=== PATIENT | male | born 1950 | race African-American/Black ===

== ENCOUNTER 2017-12-17 19:45 | Observation (INO) | payer MEDICARE, OTHER ==
--- NOTE | 2017-12-17 20:22 | PDOC ---
History of Present Illness - General Chief Complaint: Blood Sugar Problem Stated Complaint: HYPOGLYCEMIA Time Seen by Provider: 12/17/17 20:22 History Source: Patient, Spouse () Exam Limitations: Language Barrier (Mosotho Creole - retail advertising executive used) - History of Present Illness Initial Comments: Pt, with PMH of HTN, uncontrolled DM, and Alzheimer's ds, comes via EMS with complaints of hypoglycemia. Pt is accompanied by his , who also speaks Mosotho Creole. Pt was recently admitted at [facility] for HYPERglycemia, and a recent admit in the [place] for hypoglycemia. Today the pt had an episode of dizziness and diaphoresis, after he came inside for a walk. His denies any falls or LOC, but called EMS immediately because he "looked sick". EMS stated blood glucose was 43 on scene, improved to 144 after D10 administration. Pt states he has been compliant with his medications. He denies any recent illness , including LOC, vision changes, chest pain, cough, SOB, nausea/vomiting, abdominal pain, urinary symptoms, diarrhea/constipation, joint pain, or leg swelling. He denies any recent travel or sick contacts. PCP: Elijah Endocrine: Earle 12/17/17 22:11 Past History - Travel Traveled outside of the country in the last 30 days: No Close contact w/someone who was outside of country & ill: No - Past Medical History Allergies/Adverse Reactions: Allergies Allergy/AdvReac Type Severity Reaction Status Date / Time No Known Allergies Allergy Verified 11/12/17 21:16 Home Medications: Ambulatory Orders Duloxetine HCl 30 mg PO DAILY 11/12/17 Ezetimibe 10 mg PO DAILY 11/12/17 Insulin Aspart (Niacinamide) [Fiasp 100 Unit/ml Flextouch] 5 unit SQ AC Insulin Degludec [Tresiba Flextouch U-200] 20 unit SQ DAILY 11/12/17 Losartan/Hydrochlorothiazide [Losartan-Hctz 100-25 mg Tab] 1 each PO DAILY 11/12 Memantine HCl [Memantine HCl ER] 28 mg PO DAILY 11/12/17 cloNIDine HCL [Catapres -] 0.1 mg PO BID 11/12/17 Amlodipine Besylate 10 mg PO DAILY #30 tab 11/13/17 Aspirin [Ecotrin] 81 mg PO DAILY #30 tab 11/13/17 Atorvastatin Ca [Lipitor] 20 mg PO HS #30 tab 11/13/17 Blood Sugar Diagnostic [Test Strips] 100 each AC #100 strip 11/13/17 Gabapentin 600 mg PO TID 11/13/17 Carvedilol 25 mg PO BID 12/17/17 Omeprazole/Sodium Bicarbonate [Omeprazole-Bicarb 40-1,100 Cap] 1 each PO DAILY 12/17/17 COPD: No Dementia: Yes (Alzheimer's dementia) Diabetes: Yes Dialysis: No HTN: Yes - Suicide/Smoking/Psychosocial Hx Smoking History: Never smoked Have you smoked in the past 12 months: Yes Number of Cigarettes Smoked Daily: 10 Information on smoking cessation initiated: No 'Breaking Loose' booklet given: 11/13/17 Hx Alcohol Use: No Drug/Substance Use Hx: No Substance Use Type: None Hx Substance Use Treatment: No Review of Systems - Review of Systems Able to Perform ROS?: Yes (Creole retail advertising executive used) Is the patient limited [place] Islander proficient: No Constitutional: Yes: Weight Stable. No: Chills, Diaphoresis, Fever, Loss of Appetite, Weakness HEENTM: No: Blurred Vision, Double Vision, Nose Congestion, Hearing Loss, Difficulty Swallowing Respiratory: No: Cough, Orthopnea, Shortness of Breath Cardiac (ROS): No: Chest Pain, Edema, Irregular Heart Rate, Lightheadedness, Palpitations, Syncope, Chest Tightness ABD/GI: No: Abdominal Distended, Constipated, Diarrhea, Nausea, Poor Appetite, Poor Fluid Intake, Vomiting : No: Burning, Dysuria, Frequency, Hematuria, Pain, Urgency Musculoskeletal: No: Back Pain, Joint Pain, Joint Swelling Integumentary: No: Rash, Sweating Neurological: Yes: Headache (during hypoglycemic incident today), Dizziness ( vertiginous after low blood sugar). No: Numbness, Paresthesia, Seizure, Weakness, Unsteady Gait, Ataxia Psychiatric: No: Sleep Pattern Change, Change in Appetite Endocrine: Yes: Excessive Sweating (after hypoglycemic incident today). No: Intolerance to Cold, Intolerance to Heat, Increased Thirst, Increased Urine, Unexplained Weight Gain, Change in Weight Hematologic/Lymphatic: No: Anemia, Blood Clots, Easy Bleeding All Other Systems: Reviewed and Negative *Physical Exam - Vital Signs Last Vital Signs Temp Pulse Resp BP Pulse Ox 98 F 62 20 153/77 99 12/17/17 20:16 12/17/17 20:16 12/17/17 20:16 12/17/17 20:16 12/17/17 20:16 - Physical Exam General Appearance: Yes: Nourished, Appropriately Dressed. No: Apparent Distress (resting comfortably, vitals stable. Pt alert and responsive.) HEENT: positive: EOMI, Normal ENT Inspection, Normal Voice, Pharynx Normal, Hearing Grossly Normal. negative: Pale Conjunctivae, Scleral Icterus (R), Scleral Icterus (L), Pharyngeal Erythema, Tonsillar Exudate, Tonsillar Erythema , Rhinorrhea Neck: positive: Trachea midline, Normal Thyroid, Supple. negative: Tender, Rigid, Lymphadenopathy (R), Lymphadenopathy (L) Respiratory/Chest: positive: Lungs Clear, Normal Breath Sounds. negative: Chest Tender, Respiratory Distress, Accessory Muscle Use Cardiovascular: positive: Regular Rhythm, Regular Rate (HR 60s in department), S1, S2. negative: Edema, JVD, Murmur Vascular Pulses: Dorsalis-Pedis (R): 4+, Doralis-Pedis (L): 4+ Gastrointestinal/Abdominal: positive: Normal Bowel Sounds, Flat, Soft. negative : Tender, Organomegaly, Pulsatile Mass, Guarding, Rebound Rectal Exam: positive: deferred Lymphatic: negative: Adenopathy, Tenderness Musculoskeletal: positive: Normal Inspection. negative: CVA Tenderness Extremity: positive: Normal Capillary Refill, Normal Inspection, Normal Range of Motion, Pelvis Stable. negative: Tender, Pedal Edema Integumentary: positive: Normal Color, Dry, Warm. negative: Jaundice, Clammy, Diaphoresis, Petechiae, Ecchymosis, Bruising Neurologic: positive: cabinetmaker supervisor II-XII NML intact, Alert, Normal Mood/Affect, Normal Response, Motor Strength 5/5, Finger to Nose (WNL). negative: Fully Oriented ( Pt oriented to person and place, not time ( states this is pt baseline)), EOM Palsy, Facial Droop, Numbness, Confused, Depressed Affect Heart Score/ECG Review - History History: Slightly suspicious (HTN, PMH of LVH) - Electrocardiogram EKG: Non specific repolarization disturbance - Age Age: >/= 65 - Risk Factors Risk Factors Heart Score: Yes Hx Hypertension, Yes Hx Diabetes Based on the list above the patient has:: 1-2 risk factors - Troponin Troponin: </= normal limit - Score Heart Score - Total: 4 - ECG Intrepretation Rhythm: Regular Rhythm - [place]: Left [place]ot Deviation - ECG Impressions Normal ECG: No Non-specific ST Elevation: No Ischemic Changes: No Torsades willie Pointes: No WPW: No Comment:: HR 60, QRS 122. Normal sinus rhythm. LAD with LVH. ECG similar to prior (11/12/2017) 12/18/17 00:18 ED Treatment Course - LABORATORY CBC & Chemistry Diagram: 12/17/17 21:23 12/17/17 21:23 Medical Decision Making - Medical Decision Making Pt seen at bedside, also seen by Dr. Squires. Pt comes via EMS with complaints of hypoglycemia. Pt was recently admitted at [facility] for HYPERglycemia. Pt has HTN, DM , and Alzheimer's disease. Pt oriented to person and place, not time. states that is normal for him. Pt had episode of dizziness and diaphoresis, no falls, no LOC. Had CT scan prior admission. EMS stated BG was 43 on scene, improved to 144 after D10 administration. Will do basic lab work-up to ensure there were no other precipitating factors to the fall. Vitals stable, HR 60s, BP 153/77. Repeat BG 67 in ER, pt given juice and a sandwich. ECG showed large left axis deviation/LVH, wide QRS CBC, CMP, trop, UA and culture, Mg/Phos 12/17/17 21:26 CBC: WBC 14 CMP: K 3.3, BUN 24, Cr 1.7, Clearance 40 P 2.2 AST 46, AlkP 141. Acetone negative. Troponin negative. 12/17/17 22:13 UA negative for infection. Unclear source of increased WBC. Pt told we would like to keep him for admission for observation of his heart and to get his blood sugars under control. Pt agreeable to plan. 12/17/17 22:52 Spoke to ELENA Aj on behalf of admitting team. Pt will be admitted for observation to discuss diabetes medications. Ordered portable chest x-ray (WBC 14, r/o pneumonia) Ordered repeat BGM (prior was 67 in the department, pt had something to eat and is much more alert). 12/17/17 23:31 Repeat BGM 323. Pt stable and comfortable. Awaiting admitting team to see pt. 12/18/17 00:19 *DC/Admit/Observation/Transfer Diagnosis at time of Disposition: Hypoglycemia - Discharge Dispostion Condition at time of disposition: Stable Decision to Admit order: Yes - Referrals Referrals: Tab Tobar [Primary Care Provider] - - Patient Instructions - Post Discharge Activity
[2017-12-17] MEDS ORDERED: GABAPENTIN 300 MG CAPSULE (FP) PO ONE (21:22)
[2017-12-17 21:37] LABS: EOS % 0.3 % (0-4.5); HEMOGLOBIN 14.1 GM/dL (11.7-16.9); LYMPH % 14.7 % (8-40); MCH 28.6 pg (25.7-33.7); MCHC 33.5 g/dl (32.0-35.9); MEAN CELL VOLUME 85.2 fl (80-96); MEAN PLT VOLUME 10.1 fl (7.5-11.1); MONO % 4.5 % (3.8-10.2); NEUT % 79.5 % (42.8-82.8); PLATELET COUNT 212 K/MM3 (134-434); RBC 4.93 M/mm3 (4.00-5.60); RDW 13.9 % (11.9-15.9)
--- NOTE | 2017-12-17 21:40 | PDOC ---
Attending Attestation - Resident Resident Name: FabJennifer - ED Attending Attestation I have performed the following: I have examined & evaluated the patient, The case was reviewed & discussed with the resident, I agree w/resident's findings & plan, Exceptions are as noted - Medical Decision Making 12/17/17 21:21 A portion of this note was written by my scribe, under my supervision. Vital Signs Temp Pulse Resp BP Pulse Ox 98 F 62 20 153/77 99 12/17/17 20:16 12/17/17 20:16 12/17/17 20:16 12/17/17 20:16 12/17/17 20:16 67 year old male with history of HTN, DM, dementia presents with hypoglycemia. The patient was recently discharged several weeks ago ago for hyperglycemia. The patient has been taking his insulin as prescribed. This morning, the patient's quality assurance project manager had taken his sugars glucose low 200s. This evening, his quality assurance project manager noted that he was more confused than prior and diaphoretic. EMS was activated and noted his glucose in the low 40s. Was given D10W with improvement in mental status. The patient currently has no symptoms now. Unclear what is driving patient's hypoglycemia. Differential includes infectious etiology such as UTI, or acute renal insufficiency. The last discharge summary noted no known sulfonyurea. Will treat hypoglycemia and admit patient to observation. <Paramjit Squires - Last Filed: 12/17/17 21:21> - HPI HPI: 12/17/17 22:13 Patient is a 67 year old male with a significant past medical history of IDDM, HTN, other history likely extensive but unknown, BIBA w/ AMS 2/2 hypoglycemic who was brought in by EMS with complaints of AMS that occurred just prior to ED arrival. As per patient's , patients blood glucose level was check this morning and was found to be 229, prompting her to give him a dose of insulin followed by calling EMS. She reports patient began to act slightly altered which then prompted her to check his BGL again and found it to be 43. As per EMS patient was EMS at arrival but returned to baseline after being given a dose of glucose. Denies chest pain, sob. Denies nausea, vomiting. Denies contact with sick individuals, out of state travelling. Denies any other symptoms. Allergies: None Social history: Lives with . No smoking. No alcohol. No illicit drugs. Surgical history: As per HPI. PMD: Dr. Tab Tobar - Physicial Exam PE: 12/17/17 22:13 GENERAL: Awake, alert, and fully oriented, in no acute distress HEAD: No signs of trauma EYES: PERRLA, EOMI, sclera anicteric, conjunctiva clear ENT: Auricles normal inspection, hearing grossly normal, nares patent, oropharynx clear without exudates. Moist mucosa ABDOMEN: Soft, nontender, normoactive bowel sounds. No guarding, no rebound. No masses EXTREMITIES: Normal range of motion, no edema. No clubbing or cyanosis. No cords, erythema, or tenderness NEUROLOGICAL: Cranial nerves II through XII grossly intact. Normal speech, normal gait SKIN: Warm, Dry, normal turgor, no rashes or lesions noted. <Go Louis - Last Filed: 12/17/17 22:13>
[2017-12-17 21:54] LABS: INR 1.09 (0.83-1.09); PROTHROMBIN TIME (PATIENT) 12.3 SEC (9.7-13.0)
[2017-12-17 21:57] LABS: ACTIVATED PTT 34.4 SECONDS (25.2-36.5)
[2017-12-17 22:03] LABS: ACETONE SERUM NEGATIVE (NEGATIVE)
[2017-12-17 22:09] LABS: ALBUMIN 4.2 g/dl (3.4-5.0); ANION GAP 9 (8-16); BILIRUBIN,TOTAL 0.7 mg/dL (0.2-1.0); BLOOD UREA NITROGEN 24 mg/dL (7-18); CALCIUM 9.1 mg/dL (8.5-10.1); CHLORIDE 106 mmol/L (98-107); CO2 29 mmol/L (21-32); CREATININE 1.7 mg/dL (0.7-1.3); GLUCOSE,RANDOM 52 mg/dL (74-106); MAGNESIUM 2.3 mg/dL (1.8-2.4); PHOSPHOROUS 2.2 mg/dL (2.5-4.9); POTASSIUM 3.3 mmol/L (3.5-5.1); SGOT/AST 46 U/L (15-37); SGPT/ALT 65 U/L (12-78); SODIUM 144 mmol/L (136-145); TOT PROT 7.6 g/dl (6.4-8.2)
[2017-12-17 22:10] LABS: ALK PHOS 141 U/L (45-117)
[2017-12-17 22:34] LABS: URINE APPEARANCE CLEAR; URINE BILIRUBIN NEGATIVE (<2.0 mg/dL); URINE COLOR YELLOW; URINE GLUCOSE (UA) 1+ (NEGATIVE); URINE KETONE NEGATIVE (NEGATIVE); URINE LEUK ESTERASE NEGATIVE (NEGATIVE); URINE NITRITE NEGATIVE (NEGATIVE); URINE PROTEIN NEGATIVE (NEGATIVE)
[2017-12-17] MEDS ORDERED: DEXTROSE 5%-NORMAL SALINE 1,000 ML IV SCH (23:30)
--- NOTE | 2017-12-17 23:37 | HP ---
CHIEF COMPLAINT: Lethargy PCP: Dr. Tobar HISTORY OF PRESENT ILLNESS: This is a 67 y/o man with a PMHx of: DM, HTN, Alzheimer's. Who was BIBA to the ED found on the floor at home unresponsive EMS reports glucose 43. Patient was given D50 in the field. Patient's was at bedside reports that her takes his medications as prescribed but has fluctuating glucose readings from 200s down to 60's. Per spouse patient was admitted last August at [facility] for Hypoglycemia. ER course was notable for: (1) Glucose 52 (2) POC 67 (3) K 3.3 (4) WBC 14.0 Recent Travel: None PAST MEDICAL HISTORY: See HPI PAST SURGICAL HISTORY: Hernia Repair Social History: Smoking: Current 1PP 3 days Alcohol: Beer, Occasional Drugs: None Lives with Family History: Unknown Allergies No Known Allergies Allergy (Verified 11/12/17 21:16) HOME MEDICATIONS: Home Medications Medication Instructions Recorded Duloxetine HCl 30 mg PO DAILY 11/12/17 Ezetimibe 10 mg PO DAILY 11/12/17 Insulin Aspart (Niacinamide) 5 unit SQ AC 11/12/17 [Fiasp 100 Unit/ml Flextouch] Insulin Degludec [Tresiba 20 unit SQ DAILY 11/12/17 Flextouch U-200] Losartan/Hydrochlorothiazide 1 each PO DAILY 11/12/17 [Losartan-Hctz 100-25 mg Tab] Memantine HCl [Memantine HCl ER] 28 mg PO DAILY 11/12/17 cloNIDine HCL [Catapres -] 0.1 mg PO BID 11/12/17 Amlodipine Besylate 10 mg PO DAILY #30 tab 11/13/17 Aspirin [Ecotrin] 81 mg PO DAILY #30 tab 11/13/17 Atorvastatin Ca [Lipitor] 20 mg PO HS #30 tab 11/13/17 Blood Sugar Diagnostic [Test 100 each AC #100 strip 11/13/17 Strips] Gabapentin 600 mg PO TID 11/13/17 Carvedilol 25 mg PO BID 12/17/17 Omeprazole/Sodium Bicarbonate 1 each PO DAILY 12/17/17 [Omeprazole-Bicarb 40-1,100 Cap] REVIEW OF SYSTEMS CONSTITUTIONAL: lethargy Absent: fever, chills, diaphoresis, generalized weakness, malaise, loss of appetite, weight change HEENT: Absent: rhinorrhea, nasal congestion, throat pain, throat swelling, difficulty swallowing, mouth swelling, ear pain, eye pain, visual changes CARDIOVASCULAR: Absent: chest pain, syncope, palpitations, irregular heart rate, lightheadedness , peripheral edema RESPIRATORY: Absent: cough, shortness of breath, dyspnea with exertion, orthopnea, wheezing, stridor, hemoptysis GASTROINTESTINAL: Absent: abdominal pain, abdominal distension, nausea, vomiting, diarrhea, constipation, melena, hematochezia GENITOURINARY: Absent: dysuria, frequency, urgency, hesitancy, hematuria, flank pain, genital pain MUSCULOSKELETAL: Absent: myalgia, arthralgia, joint swelling, back pain, neck pain SKIN: Absent: rash, itching, pallor HEMATOLOGIC/IMMUNOLOGIC: Absent: easy bleeding, easy bruising, lymphadenopathy, frequent infections ENDOCRINE: Absent: unexplained weight gain, unexplained weight loss, heat intolerance, cold intolerance NEUROLOGIC: Absent: headache, focal weakness or paresthesias, dizziness, unsteady gait, seizure, mental status changes, bladder or bowel incontinence PSYCHIATRIC: Absent: anxiety, depression, suicidal or homicidal ideation, hallucinations. PHYSICAL EXAMINATION Vital Signs - 24 hr 12/17/17 20:16 Temperature 98 F Pulse Rate 62 Respiratory 20 Rate Blood Pressure 153/77 O2 Sat by Pulse 99 Oximetry (%) GENERAL: Lethargic but arousable oriented to name and place only, in no acute distress. HEAD: Normal with no signs of trauma. EYES: Pupils equal, round and reactive to light, extraocular movements intact, sclera anicteric, conjunctiva clear. No lid lag. EARS, NOSE, THROAT: Ears normal, nares patent, oropharynx clear without exudates. Dry mucous membranes. NECK: Normal range of motion, supple without lymphadenopathy, JVD, or masses. LUNGS: Breath sounds equal, clear to auscultation bilaterally. No wheezes, and no crackles. No accessory muscle use. HEART: Regular rate and rhythm, normal S1 and S2 without murmur, rub or gallop. ABDOMEN: Soft, nontender, not distended, normoactive bowel sounds, no guarding, no rebound, no masses. No hepatomegaly or splenomegaly. MUSCULOSKELETAL: Normal range of motion at all joints. No bony deformities or tenderness. No CVA tenderness. UPPER EXTREMITIES: 2+ pulses, warm, well-perfused. No cyanosis. No clubbing. No peripheral edema. LOWER EXTREMITIES: 2+ pulses, warm, well-perfused. No calf tenderness. No peripheral edema. NEUROLOGICAL: Cranial nerves II-XII intact. Normal speech. Gait not observed. PSYCHIATRIC: Cooperative. Good eye contact. Appropriate mood and affect. SKIN: Warm, dry, normal turgor, no rashes or lesions noted, normal capillary refill. Laboratory Results - last 24 hr 12/17/17 12/17/17 12/17/17 21:23 21:23 21:23 WBC 14.0 H RBC 4.93 Hgb 14.1 Hct 42.0 MCV 85.2 MCH 28.6 MCHC 33.5 RDW 13.9 Plt Count 212 D MPV 10.1 Absolute Neuts (auto) 11.2 H Neutrophils % 79.5 Lymphocytes % 14.7 Monocytes % 4.5 Eosinophils % 0.3 Basophils % 1.0 Nucleated RBC % 0 PT with INR 12.30 INR 1.09 PTT (Actin FS) 34.4 Sodium 144 Potassium 3.3 L Chloride 106 Carbon Dioxide 29 Anion Gap 9 BUN 24 H Creatinine 1.7 H Creat Clearance w eGFR 40.53 POC Glucometer Random Glucose 52 L D Calcium 9.1 Phosphorus 2.2 L D Magnesium 2.3 Total Bilirubin 0.7 AST 46 H D ALT 65 D Alkaline Phosphatase 141 H Troponin I Total Protein 7.6 Albumin 4.2 Urine Color Urine Appearance Urine pH Ur Specific [place] Urine Protein Urine Glucose (UA) Urine Ketones Urine Blood Urine Nitrite Urine Bilirubin Urine Urobilinogen Ur Leukocyte Esterase Acetone, Qual Negative 12/17/17 12/17/17 12/17/17 21:23 21:24 22:19 WBC RBC Hgb Hct MCV MCH MCHC RDW Plt Count MPV Absolute Neuts (auto) Neutrophils % Lymphocytes % Monocytes % Eosinophils % Basophils % Nucleated RBC % PT with INR INR PTT (Actin FS) Sodium Potassium Chloride Carbon Dioxide Anion Gap BUN Creatinine Creat Clearance w eGFR POC Glucometer 67.26723 Random Glucose Calcium Phosphorus Magnesium Total Bilirubin AST ALT Alkaline Phosphatase Troponin I < 0.02 Total Protein Albumin Urine Color Yellow Urine Appearance Clear Urine pH 7.0 Ur Specific [place] 1.016 Urine Protein Negative Urine Glucose (UA) 1+ H Urine Ketones Negative Urine Blood Negative Urine Nitrite Negative Urine Bilirubin Negative Urine Urobilinogen 2.0 Ur Leukocyte Esterase Negative Acetone, Qual ASSESSMENT/PLAN: 67 y/o man placed in Observation for Hypoglycemia for further evaluation of their emergent condition. Plan: 1. Endocrine: Hypoglycemia - BGMs - Appreciate Endocrinology consult - Hold meds for now, have day team reassess in am - HgbA1c in am - IVF 2. Nephrology ANTONIO - Likely due to Dehydration - Continue IVF - Repeat BMP in am 3. Cardiology: Hypertension/HLD - stable - Monitor BP - Continue home meds with parameters - Monitor renal function 4. Psych: Alzheimer's - continue home med 5. FEN - D5NS@42ml/hr - Replete lytes, monitor K - Diabetic, Low Na Diet 6. DVT ppx - OOB - SCDs - Consider AC if LOS > 48hrs Code Status: Full Code Dispo: Observation Problem List - Problem (1) Hypoglycemia Code(s): E16.2 - HYPOGLYCEMIA, UNSPECIFIED (2) ANTONIO (acute kidney injury) Code(s): N17.9 - ACUTE KIDNEY FAILURE, UNSPECIFIED (3) HTN (hypertension) Code(s): I10 - ESSENTIAL (PRIMARY) HYPERTENSION (4) Alzheimers disease Code(s): G30.9 - ALZHEIMER'S DISEASE, UNSPECIFIED; F02.80 - DEMENTIA IN OTH DISEASES CLASSD ELSWHR W/O BEHAVRL DISTURB Visit type - Emergency Visit Emergency Visit: Yes ED Registration Date: 12/17/17 Care time: The patient presented to the Emergency Department on the above date and was hospitalized for further evaluation of their emergent condition. - New Patient This patient is new to me today: Yes Date on this admission: 12/17/17 - Critical Care Critical Care patient: No Hospitalist Screening - Colonoscopy Questionnaire Colonoscopy Questionnaire: Colonoscopy Questionnaire - Patient: 50 - 75 years old and never had a screening colonoscopy: Unknown History of colon or rectal polyps, or CA: Unknown History of IBD, Crohn's disease or UC: Unknown History of abdominal radiation therapy as a child: Unknown - Relative: 1 with colon or rectal CA, or polyps at age 60 or younger: Unknown Colon or rectal CA diagnosed at age 45 or younger: Unknown Multiple relatives with colon or rectal CA: Unknown - Outcome: Screening Result: Negative Screen
[2017-12-18 03:23] VITALS: BMI 22.6
[2017-12-18] MEDS: GABAPENTIN 300 MG CAPSULE (FP) PO SCH ×4 (07:14→21:41)
[2017-12-18 08:58] LABS: BASO % 0.7 % (0-2.0); EOS % 0.8 % (0-4.5); HEMATOCRIT 40.2 % (35.4-49); HEMOGLOBIN 13.8 GM/dL (11.7-16.9); MCH 29.2 pg (25.7-33.7); MCHC 34.4 g/dl (32.0-35.9); MEAN CELL VOLUME 84.7 fl (80-96); MEAN PLT VOLUME 10.6 fl (7.5-11.1); MONO % 5.8 % (3.8-10.2); NEUT % 64.7 % (42.8-82.8); PLATELET COUNT 205 K/MM3 (134-434); RBC 4.74 M/mm3 (4.00-5.60); RDW 14.2 % (11.9-15.9); WHITE BLOOD COUNT 10.9 K/mm3 (4.0-10.0)
[2017-12-18 09:29] LABS: CHLORIDE 103 mmol/L (98-107); POTASSIUM 3.6 mmol/L (3.5-5.1); SODIUM 141 mmol/L (136-145)
[2017-12-18 09:33] LABS: ANION GAP 9 (8-16); BLOOD UREA NITROGEN 22 mg/dL (7-18); CO2 29 mmol/L (21-32); CREATININE 1.4 mg/dL (0.7-1.3); GLUCOSE,RANDOM 165 mg/dL (74-106)
--- NOTE | 2017-12-18 09:43 | PN ---
Progress Note, Physician - Current Medication List Current Medications: Active Medications Amlodipine Besylate (Norvasc -) 10 mg PO DAILY [facility] Aspirin (Asa -) 81 mg PO DAILY [facility] Atorvastatin Calcium (Lipitor -) 20 mg PO HS [facility] Carvedilol (Coreg -) 25 mg PO BID [facility] Duloxetine HCl (Cymbalta -) 30 mg PO DAILY [facility] Ezetimibe (Zetia -) 10 mg PO DAILY [facility] Gabapentin (Neurontin -) 600 mg PO TID [facility] Last Admin: 12/18/17 07:14 Dose: 600 mg Dextrose/Sodium Chloride (D5-Ns -) 1,000 mls @ 42 mls/hr IV ASDIR [facility] Last Admin: 12/18/17 02:12 Dose: 42 mls/hr Non-Formulary Medication (Memantine Hcl [Memantine Hcl Er]) 28 mg PO DAILY [facility] - Objective Vital Signs: Vital Signs Temperature 98 F 12/18/17 05:00 Pulse Rate 66 12/18/17 05:00 Respiratory Rate 20 12/18/17 05:00 Blood Pressure 111/58 12/18/17 05:00 O2 Sat by Pulse Oximetry (%) 98 12/18/17 03:27 Cardiovascular: Yes: Bradycardia, S1, S2 Respiratory: Yes: Regular, CTA Bilaterally Gastrointestinal: Yes: Normal Bowel Sounds, Soft Labs: CBC, BMP 12/18/17 08:15 12/18/17 08:15 INR, PTT INR 1.09 (0.83-1.09) 12/17/17 21:23 Problem List - Problems (1) Hypoglycemia Assessment/Plan: - BGMs - Appreciate Endocrinology consult - Hold meds for now - HgbA1c in am - dc IVF Code(s): E16.2 - HYPOGLYCEMIA, UNSPECIFIED (2) HTN (hypertension) Assessment/Plan: - stable - Monitor BP - Continue home meds with parameters - Monitor renal function Code(s): I10 - ESSENTIAL (PRIMARY) HYPERTENSION (3) ANTONIO (acute kidney injury) Assessment/Plan: - Likely due to Dehydration - Continue IVF - Repeat BMP in am Code(s): N17.9 - ACUTE KIDNEY FAILURE, UNSPECIFIED (4) Alzheimers disease Assessment/Plan: - continue home med Code(s): G30.9 - ALZHEIMER'S DISEASE, UNSPECIFIED; F02.80 - DEMENTIA IN OTH DISEASES CLASSD ELSWHR W/O BEHAVRL DISTURB
[2017-12-18] MEDS ORDERED: PT OWN MED DRAWER 7, Y5N ONE ×3 (09:51→21:37)
[2017-12-18] MEDS: DULoxetine HCL 30 MG CAPSULE.DR (FP) PO SCH (09:53)
[2017-12-18] MEDS: amLODIPine BESYLATE 10 MG TABLET (FP) PO SCH (09:53)
[2017-12-18] MEDS: CARVEDILOL 25 MG TABLET (FP) PO SCH ×2 (09:53→21:41)
[2017-12-18] MEDS: ASPIRIN 81 MG CHEWABLE TABLETS PO SCH (09:53)
[2017-12-18] MEDS: EZETIMIBE 10 MG TABLET (FP) PO SCH (09:55)
--- NOTE | 2017-12-18 16:26 | CONSULT ---
Consult Consult Specialty:: Encrinology coverage for Dr Parmar Referred by:: Dr Truong Reason for Consultation:: Hypoglycemia - History of Present Illness Chief Complaint: Hypoglycemia History of Present Illness: This is a 67 y/o man with h/o T2DM for 20 years, on Insulin for many years, HTN , Alzheimer's. who was BIBA to the ED after he was found on the floor at home unresponsive. EMS reports glucose of 43. Patient was given D50 in the field. Patient's who was at bedside reported that her takes his medications as prescribed but has fluctuating glucose readings from 200s down to 60's. Per spouse patient was admitted last August to [facility] for hypoglycemia. Pt says his Tresiba dose was recently increased to 25 and Novolog to 12 BID. He however takes Novolog BID only. Usual FS at home 180 to 190 in the morning and 200 to 400 during the day. Denies any visual symptoms. No paresthesia. No CP, SOB, Palpitations. No abd pain, No NV. - History Source History Provided By: Patient, Medical Record Limitations to Obtaining History: Poor Historian - Past Medical History Endocrine: Yes: Diabetes Mellitus - Alcohol/Substance Use Hx Alcohol Use: No - Smoking History Smoking history: Never smoked Have you smoked in the past 12 months: Yes Aproximately how many cigarettes per day: 10 Home Medications - Allergies Allergies/Adverse Reactions: Allergies Allergy/AdvReac Type Severity Reaction Status Date / Time No Known Allergies Allergy Verified 11/12/17 21:16 - Home Medications Home Medications: Ambulatory Orders Duloxetine HCl 30 mg PO DAILY 11/12/17 Ezetimibe 10 mg PO DAILY 11/12/17 Insulin Aspart (Niacinamide) [Fiasp 100 Unit/ml Flextouch] 5 unit SQ AC Insulin Degludec [Tresiba Flextouch U-200] 20 unit SQ DAILY 11/12/17 Losartan/Hydrochlorothiazide [Losartan-Hctz 100-25 mg Tab] 1 each PO DAILY 11/12 Memantine HCl [Memantine HCl ER] 28 mg PO DAILY 11/12/17 cloNIDine HCL [Catapres -] 0.1 mg PO BID 11/12/17 Amlodipine Besylate 10 mg PO DAILY #30 tab 11/13/17 Aspirin [Ecotrin] 81 mg PO DAILY #30 tab 11/13/17 Atorvastatin Ca [Lipitor] 20 mg PO HS #30 tab 11/13/17 Blood Sugar Diagnostic [Test Strips] 100 each AC #100 strip 11/13/17 Gabapentin 600 mg PO TID 11/13/17 Carvedilol 25 mg PO BID 12/17/17 Omeprazole/Sodium Bicarbonate [Omeprazole-Bicarb 40-1,100 Cap] 1 each PO DAILY 12/17/17 Family Disease History - Family Disease History Other Family History: No family h/o DM Review of Systems - Review of Systems Constitutional: reports: No Symptoms Eyes: reports: No Symptoms HENT: reports: No Symptoms Neck: reports: No Symptoms Cardiovascular: reports: No Symptoms Respiratory: reports: No Symptoms Gastrointestinal: reports: No Symptoms Genitourinary: reports: No Symptoms Musculoskeletal: reports: No Symptoms Neurological: reports: No Symptoms Endocrine: reports: No Symptoms Physical Exam Vital Signs: Vital Signs Temperature 98.4 F 12/18/17 15:21 Pulse Rate 66 12/18/17 15:21 Respiratory Rate 20 12/18/17 15:21 Blood Pressure 122/60 12/18/17 15:21 O2 Sat by Pulse Oximetry (%) 97 12/18/17 09:00 Constitutional: Yes: No Distress, Calm Eyes: Yes: Conjunctiva Clear, EOM Intact HENT: Yes: Atraumatic, Normocephalic Neck: Yes: Supple, Trachea Midline Cardiovascular: Yes: Regular Rate and Rhythm Respiratory: Yes: Regular, CTA Bilaterally Gastrointestinal: Yes: Normal Bowel Sounds, Soft Musculoskeletal: Yes: WNL Extremities: Yes: WNL Edema: No Neurological: Yes: Alert, Oriented Labs: CBC, BMP 12/18/17 08:15 12/18/17 08:15 Assessment/Plan AP: Hypoglycemia T2DM, Insulin requiring HTN BGM Q4h Novolog coverage ONLY Premeals and HS Nutrition consult Will f/u
[2017-12-18] MEDS ORDERED: INSULIN (NOVOLOG) ASPART 100 UNITS/ML 10ML VIAL SQ ONE (17:30)
--- NOTE | 2017-12-18 17:55 | CON.CARD ---
Consult Consult Specialty:: Cardiology Referred by:: Dr. Truong Reason for Consultation:: Bradycardic - History of Present Illness Chief Complaint: found unresponsive hypoglycemic History of Present Illness: 67 y/o man with a PMHx of: DM, HTN, Alzheimer's. Who was BIBA to the ED found on the floor at home unresponsive EMS reports glucose 43. Patient was given D50 in the field. Patient's was at bedside reports that her takes his medications as prescribed but has fluctuating glucose readings from 200s down to 60's. Per spouse patient was admitted last August at [facility] for Hypoglycemia. - History Source History Provided By: Patient, Medical Record Limitations to Obtaining History: No Limitations - Past Medical History Cardio/Vascular: Yes: HTN, Hyperlipdemia Endocrine: Yes: Diabetes Mellitus - Alcohol/Substance Use Hx Alcohol Use: No - Smoking History Smoking history: Never smoked Have you smoked in the past 12 months: Yes Aproximately how many cigarettes per day: 10 - Social History ADL: Independent History of Recent Travel: No Home Medications - Allergies Allergies/Adverse Reactions: Allergies Allergy/AdvReac Type Severity Reaction Status Date / Time No Known Allergies Allergy Verified 11/12/17 21:16 - Home Medications Home Medications: Ambulatory Orders Duloxetine HCl 30 mg PO DAILY 11/12/17 Ezetimibe 10 mg PO DAILY 11/12/17 Insulin Aspart (Niacinamide) [Fiasp 100 Unit/ml Flextouch] 5 unit SQ AC Insulin Degludec [Tresiba Flextouch U-200] 20 unit SQ DAILY 11/12/17 Losartan/Hydrochlorothiazide [Losartan-Hctz 100-25 mg Tab] 1 each PO DAILY 11/12 Memantine HCl [Memantine HCl ER] 28 mg PO DAILY 11/12/17 cloNIDine HCL [Catapres -] 0.1 mg PO BID 11/12/17 Amlodipine Besylate 10 mg PO DAILY #30 tab 11/13/17 Aspirin [Ecotrin] 81 mg PO DAILY #30 tab 11/13/17 Atorvastatin Ca [Lipitor] 20 mg PO HS #30 tab 11/13/17 Blood Sugar Diagnostic [Test Strips] 100 each AC #100 strip 11/13/17 Gabapentin 600 mg PO TID 11/13/17 Carvedilol 25 mg PO BID 12/17/17 Omeprazole/Sodium Bicarbonate [Omeprazole-Bicarb 40-1,100 Cap] 1 each PO DAILY 12/17/17 Family Disease History - Family Disease History Family History: Denies Other Family History: No family h/o DM Review of Systems - Review of Systems Constitutional: denies: No Symptoms, Chills, Diaphoresis, Fever, Lethargy, Loss of Appetite, Malaise, Night Sweats, Unintentional Wgt. Loss, Weakness, Other Eyes: denies: No Symptoms, Blind Spots, Blurred Vision, Double Vision, Eye Pain , Floaters, Photophobia, Recent Change in Vision, Other HENT: denies: No Symptoms, Difficult Swallowing, Ear Discharge, Ear Pain, Epistaxis, Gingival Bleeding, Hearing Loss, Mouth Swelling, Nasal Congestion, Ocular Prosthesis, Throat Pain, Toothache, Ringing in Ears, Other Neck: denies: No Symptoms, Decreased ROM, Lumps, Pain on Movement, Stiffness, Swollen Glands, Tenderness, Other Cardiovascular: denies: No Symptoms, Chest Pain, Edema, Palpitations, Shortness of Breath, Other Respiratory: denies: No Symptoms, Cough, Exercise Intolerance, Hemoptysis, Orthopnea, PND, Snoring, SOB, SOB on Exertion, Wheezing, Other Gastrointestinal: denies: No Symptoms, Abdominal Pain, Bloating, Constipation, Diarrhea, Dysphagia, Indigestion, Melena, Nausea, Rectal Bleeding, Vomiting, Vomiting Blood, Other Genitourinary: denies: No Symptoms, Burning, Discharge, Dysuria, Flank Pain, Frequency, Hematuria, Incontinence, Lesions, Menses, Pain, Testicular Mass, Testicular Pain, Testicular Swelling, Urgency, Vaginal Bleeding, Other Breasts: denies: No Symptoms Reported, See HPI, Breast Implants, Discharge from Nipple, Lumps, Pain, Skin Changes, Other Musculoskeletal: denies: No Symptoms, Back Pain, Crepitus, Decreased ROM, Extremity Pain, Joint Pain, Joint Swelling, Muscle Pain, Muscle Cramps, Muscle Weakness, Other Integumentary: denies: No Symptoms, Blister, Bruising, Change in Color, Eczema, Erythema, Incision, Lesions, Lump, Pallor, Pruritis, Rash, Wound, Other Neurological: reports: Syncope. denies: No Symptoms, Change in LOC, Change in Speech, Confusion, Dizziness, Headache, Incoordination, Numbness, Parasthesia, Pre-Existing Deficit, Seizure, Tremors, Unsteady Gait, Weakness, Other Endocrine: denies: No Symptoms, Excessive Sweating, Flushing, Increased Hunger, Increased Thirst, Intolerance to Cold, Intolerance to Heat, Unexplained Weight Gain, Unexplained Weight Loss, Other Hematology/Lymphatic: denies: No Symptoms, Easily Bruised, Excessive Bleeding, Swollen Glands, Other Psychiatric: denies: No Symptoms, Altered Sleep Pattern, Anxiety, Depression, Hallucinations, Panic, Paranoia, Suicidal, Other - Risk Factors Known Risk Factors: Yes: Hypercholesterolemia, Hypertension Vital Signs: Vital Signs Temperature 98.4 F 12/18/17 15:21 Pulse Rate 66 12/18/17 15:21 Respiratory Rate 20 12/18/17 15:21 Blood Pressure 122/60 12/18/17 15:21 O2 Sat by Pulse Oximetry (%) 97 12/18/17 09:00 Constitutional: Yes: Well Nourished, No Distress, Calm Eyes: Yes: WNL, Conjunctiva Clear, EOM Intact, PERRL HENT: Yes: WNL, Atraumatic, Normocephalic Neck: Yes: WNL, Supple, Trachea Midline Respiratory: Yes: WNL, Regular, CTA Bilaterally. No: Rales, Rhonchi, Wheezes Gastrointestinal: Yes: WNL, Normal Bowel Sounds, Soft. No: Distention, Tenderness Renal/: Yes: WNL Cardiovascular: Yes: Regular Rate and Rhythm. No: Bradycardia, Tachycardia, Pulse Irregular, Gallop, Rub, Varicosities JVD: No Carotid Bruit: No PMI: Non-Displaced Heart Sounds: Yes: S1, S2. No: Split S2, S3, S4, Clicks, Gallop, Rub, Bruit Murmur: No: Systolic Murmur, Diastolic Murmur Musculoskeletal: Yes: WNL Extremities: Yes: WNL Edema: No Peripheral Pulses WNL: Yes Peripheral Pulses: 2+ Left Doralis Pedis, 2+ Right Dorsalis Pedis Integumentary: Yes: WNL Neurological: Yes: Alert, Oriented Psychiatric: Yes: Alert, Oriented - Other Data Labs, Other Data: CBC, BMP 12/18/17 08:15 12/18/17 08:15 INR, PTT INR 1.09 (0.83-1.09) 12/17/17 21:23 Troponin, BNP 12/17/17 21:23 Troponin I < 0.02 Troponin, BNP 12/17/17 21:23 Troponin I < 0.02 ekg-nsr 60 bpm, LVH, R inversions V4, V5, V6, I, aVL, poor R progression EKG NSR 64 bpm T inversions V3, V4, V5, V6 T wave abnormalities no sig change from EKG 10/2017 Imaging - Results Chest X-ray: Report Reviewed, Image Reviewed EKG: Report Reviewed, Image Reviewed Other: Report Reviewed, Image Reviewed Assessment/Plan 67 y/o man with a PMHx of: DM, HTN, Alzheimer's. Who was BIBA to the ED found on the floor at home unresponsive EMS reports glucose 43. Patient was given D50 in the field. Patient's was at bedside reports that her takes his medications as prescribed but has fluctuating glucose readings from 200s down to 60's. Per spouse patient was admitted last August at [facility] for Hypoglycemia. Bradycardia -1 episode documented in vitals of HR 54 otherwise HR in 60s throughout admission -repeated EKG today, HR 64 on ekg today -bradycardia does not seem to be an issue currently Abnormal ekg -diffuse T wave inversion -no sig change from ekg 10/2017 -stress test done 2015 showed no ischemia -do not see an echo in the system, will check an echo to evaluate for LV size and function -pt was found unresponsive at home but was hypoglycemic and this was felt to be the source
[2017-12-18] MEDS: MEMANTINE HCL PO SCH (18:24)
--- NOTE | 2017-12-18 19:09 | EKG ---
Test Reason : Blood Pressure : / mmHG Vent. Rate : 064 BPM Atrial Rate : 064 BPM P-R Int : 184 ms QRS Dur : 108 ms QT Int : 416 ms P-R-T Axes : 062 -45 174 degrees QTc Int : 429 ms NORMAL SINUS RHYTHM LEFT AXIS DEVIATION LEFT VENTRICULAR HYPERTROPHY WITH REPOLARIZATION ABNORMALITY MARKED T WAVE ABNORMALITY, CONSIDER ANTEROLATERAL ISCHEMIA ABNORMAL ECG Confirmed by MD STEVAN, MAC ([id number]) on 12/18/2017 7:09:06 PM Referred By: Damaris CONSTANTINO Confirmed By:MAC CALLES MD
--- NOTE | 2017-12-18 19:19 | EKG ---
Test Reason : Blood Pressure : / mmHG Vent. Rate : 060 BPM Atrial Rate : 060 BPM P-R Int : 184 ms QRS Dur : 122 ms QT Int : 440 ms P-R-T Axes : 072 -44 157 degrees QTc Int : 440 ms NORMAL SINUS RHYTHM POSSIBLE LEFT ATRIAL ENLARGEMENT LEFT AXIS DEVIATION LEFT VENTRICULAR HYPERTROPHY WITH QRS WIDENING AND REPOLARIZATION ABNORMALITY MARKED T WAVE ABNORMALITY, CONSIDER LATERAL ISCHEMIA CANNOT RULE OUT SEPTAL INFARCT , AGE UNDETERMINED ABNORMAL ECG Confirmed by MD STEVAN, MAC ([id number]) on 12/18/2017 7:18:44 PM Referred By: Confirmed By:MAC CALLES MD
[2017-12-18] MEDS: cloNIDine HCL 0.1 MG TABLET PO SCH (21:43)
[2017-12-18] MEDS ORDERED: ATORVASTATIN CA 20 MG TABLET (FP) PO SCH (22:00)
[2017-12-18] MEDS ORDERED: INSULIN SLIDING SCALE (NOVOLOG) 1 VIAL SQ SCH (22:00)
[2017-12-19] MEDS: GABAPENTIN 300 MG CAPSULE (FP) PO SCH (06:03)
[2017-12-19] MEDS: INSULIN SLIDING SCALE (NOVOLOG) 1 VIAL SQ SCH ×2 (06:05→09:59)
--- NOTE | 2017-12-19 08:53 | PN ---
Progress Note, Physician - Current Medication List Current Medications: Active Medications Amlodipine Besylate (Norvasc -) 10 mg PO DAILY [facility] Last Admin: 12/18/17 09:53 Dose: 10 mg Aspirin (Asa -) 81 mg PO DAILY [facility] Last Admin: 12/18/17 09:53 Dose: 81 mg Atorvastatin Calcium (Lipitor -) 20 mg PO HS [facility] Last Admin: 12/18/17 21:41 Dose: 20 mg Carvedilol (Coreg -) 25 mg PO BID [facility] Last Admin: 12/18/17 21:41 Dose: 25 mg Clonidine (Catapres -) 0.1 mg PO BID [facility] Last Admin: 12/18/17 21:43 Dose: 0.1 mg Duloxetine HCl (Cymbalta -) 30 mg PO DAILY [facility] Last Admin: 12/18/17 09:53 Dose: 30 mg Ezetimibe (Zetia -) 10 mg PO DAILY [facility] Last Admin: 12/18/17 09:55 Dose: 10 mg Gabapentin (Neurontin -) 600 mg PO TID [facility] Last Admin: 12/19/17 06:03 Dose: 600 mg Hydrochlorothiazide (Hctz -) 25 mg PO DAILY [facility] Insulin Aspart (Novolog Vial Sliding Scale -) 1 vial SQ TIDAC [facility]; Protocol Last Admin: 12/19/17 06:05 Dose: Not Given Insulin Aspart (Novolog Vial Sliding Scale -) 1 vial SQ [facility]; Protocol Last Admin: 12/18/17 21:41 Dose: 6 units Losartan Potassium (Cozaar -) 100 mg PO DAILY [facility] Pnt's Own Med [ Memantine Hcl Er 28 Mg] 28 mg PO DAILY [facility] Last Admin: 12/18/17 18:24 Dose: 28 mg - Objective Vital Signs: Vital Signs Temperature 98.4 F 12/19/17 06:00 Pulse Rate 53 L 12/19/17 06:00 Respiratory Rate 18 12/19/17 06:52 Blood Pressure 107/56 12/19/17 06:00 O2 Sat by Pulse Oximetry (%) 96 12/19/17 06:52 Labs: CBC, BMP 12/18/17 08:15 12/18/17 08:15 INR, PTT INR 1.09 (0.83-1.09) 12/17/17 21:23
--- NOTE | 2017-12-19 08:59 | DS ---
Physical Examination Vital Signs: Vital Signs Temperature 98.4 F 12/19/17 06:00 Pulse Rate 53 L 12/19/17 06:00 Respiratory Rate 18 12/19/17 06:52 Blood Pressure 107/56 12/19/17 06:00 O2 Sat by Pulse Oximetry (%) 96 12/19/17 06:52 Constitutional: Yes: No Distress Eyes: Yes: WNL HENT: Yes: WNL Neck: Yes: WNL Cardiovascular: Yes: WNL Respiratory: Yes: WNL Gastrointestinal: Yes: WNL Renal/: Yes: WNL Musculoskeletal: Yes: WNL Extremities: Yes: WNL Edema: No Peripheral Pulses WNL: Yes Integumentary: Yes: WNL Wound/Incision: Yes: Clean/Dry Neurological: Yes: WNL ...Motor Strength: WNL Psychiatric: Yes: WNL Labs: CBC, BMP 12/18/17 08:15 12/18/17 08:15 Discharge Summary Reason For Visit: HYPOGLYCEMIA Current Active Problems Alzheimers disease (Acute) HTN (hypertension) (Acute) Hypoglycemia (Acute) Procedures: Principal: MONITORED LABS/BGM Hospital Course: ADMITTED WITH HYPOGLYCEMIA, WILL NEED STRICT GLUCOSE CONTROL AND BGM MONITORING, Condition: Stable - Instructions Diet, Activity, Other Instructions: SEE DR TOBAR TODAY, STOP TRISIBA AND RESTART SLIDING SCALE INSULIN WITH DR TOBAR [facility] ORDERED Referrals: Tab Tobar [Primary Care Provider] - Disposition: LONG TERM FACILITY - Home Medications Comprehensive Discharge Medication List: Ambulatory Orders Duloxetine HCl 30 mg PO DAILY 11/12/17 Ezetimibe 10 mg PO DAILY 11/12/17 Insulin Aspart (Niacinamide) [Fiasp 100 Unit/ml Flextouch] 5 unit SQ AC Insulin Degludec [Tresiba Flextouch U-200] 20 unit SQ DAILY 11/12/17 Losartan/Hydrochlorothiazide [Losartan-Hctz 100-25 mg Tab] 1 each PO DAILY 11/12 Memantine HCl [Memantine HCl ER] 28 mg PO DAILY 11/12/17 cloNIDine HCL [Catapres -] 0.1 mg PO BID 11/12/17 Amlodipine Besylate 10 mg PO DAILY #30 tab 11/13/17 Aspirin [Ecotrin] 81 mg PO DAILY #30 tab 11/13/17 Atorvastatin Ca [Lipitor] 20 mg PO HS #30 tab 11/13/17 Blood Sugar Diagnostic [Test Strips] 100 each AC #100 strip 11/13/17 Gabapentin 600 mg PO TID 11/13/17 Carvedilol 25 mg PO BID 12/17/17 Omeprazole/Sodium Bicarbonate [Omeprazole-Bicarb 40-1,100 Cap] 1 each PO DAILY 12/17/17
[2017-12-19] MEDS: cloNIDine HCL 0.1 MG TABLET PO SCH (09:25)
[2017-12-19] MEDS: amLODIPine BESYLATE 10 MG TABLET (FP) PO SCH (09:25)
[2017-12-19] MEDS: CARVEDILOL 25 MG TABLET (FP) PO SCH (09:25)
[2017-12-19] MEDS: ASPIRIN 81 MG CHEWABLE TABLETS PO SCH (09:25)
[2017-12-19] MEDS: DULoxetine HCL 30 MG CAPSULE.DR (FP) PO SCH (09:25)
[2017-12-19] MEDS: MEMANTINE HCL PO SCH (09:26)
[2017-12-19] MEDS: EZETIMIBE 10 MG TABLET (FP) PO SCH (09:27)
[2017-12-19] MEDS ORDERED: INSULIN (NOVOLOG) ASPART 100 UNITS/ML 10ML VIAL ONE (09:55)
[2017-12-19] MEDS ORDERED: HYDROCHLOROTHIAZIDE 25 MG TABLET (FP) PO SCH (10:00)
[2017-12-19] MEDS ORDERED: LOSARTAN POTASSIUM 50 MG TABLET (FP) PO SCH (10:00)
--- NOTE | 2017-12-19 10:44 | PN ---
Progress Note (short form) - Note Progress Note: Denies any complaints No hypos Vital Signs Period Temp Pulse Resp BP Sys/Nance Pulse Ox Last 24 Hr 97.8 F-98.4 F 53-66 18-20 107-139/49-65 96-97 PE: AOx3 Neck: Supple, No JVD HEENT: PERRL, EOMI Lungs: CTA CvS: S1S2 Abd: Benign Ext: No edema Neuro: No focal deficit CMP Sodium 141 mmol/L (136-145) 12/18/17 08:15 Potassium 3.6 mmol/L (3.5-5.1) 12/18/17 08:15 Chloride 103 mmol/L (98-107) 12/18/17 08:15 Carbon Dioxide 29 mmol/L (21-32) 12/18/17 08:15 Anion Gap 9 (8-16) 12/18/17 08:15 BUN 22 mg/dL (7-18) H 12/18/17 08:15 Creatinine 1.4 mg/dL (0.7-1.3) H 12/18/17 08:15 Creat Clearance w eGFR 50.70 (>60) 12/18/17 08:15 POC Glucometer 293 UNITS (80-120) 12/19/17 09:54 Random Glucose 165 mg/dL (74-106) H D 12/18/17 08:15 Calcium 9.0 mg/dL (8.5-10.1) 12/18/17 08:15 Phosphorus 2.2 mg/dL (2.5-4.9) L D 12/17/17 21:23 Magnesium 2.3 mg/dL (1.8-2.4) 12/17/17 21:23 Total Bilirubin 0.7 mg/dL (0.2-1.0) 12/17/17 21:23 AST 46 U/L (15-37) H D 12/17/17 21:23 ALT 65 U/L (12-78) D 12/17/17 21:23 Alkaline Phosphatase 141 U/L (45-117) H 12/17/17 21:23 Troponin I < 0.02 ng/ml (0.00-0.05) 12/17/17 21:23 Total Protein 7.6 g/dl (6.4-8.2) 12/17/17 21:23 Albumin 4.2 g/dl (3.4-5.0) 12/17/17 21:23 Current Medications Generic Name Dose Route Start Last Admin Trade Name Aisha PRN Reason Stop Dose Admin Amlodipine Besylate 10 mg 12/18/17 10:00 12/19/17 09:25 Norvasc - PO 10 mg DAILY MAYE Administration Aspirin 81 mg 12/18/17 10:00 12/19/17 09:25 Asa - PO 81 mg DAILY MAYE Administration Atorvastatin Calcium 20 mg 12/18/17 22:00 12/18/17 21:41 Lipitor - PO 20 mg HS MAYE Administration Carvedilol 25 mg 12/18/17 10:00 12/19/17 09:25 Coreg - PO 25 mg BID MAYE Administration Clonidine 0.1 mg 12/18/17 22:00 12/19/17 09:25 Catapres - PO 0.1 mg BID MAYE Administration Duloxetine HCl 30 mg 12/18/17 10:00 12/19/17 09:25 Cymbalta - PO 30 mg DAILY MAYE Administration Ezetimibe 10 mg 12/18/17 10:00 12/19/17 09:27 Zetia - PO 10 mg DAILY MAYE Administration Gabapentin 600 mg 12/18/17 14:00 12/19/17 06:03 Neurontin - PO 600 mg TID MAYE Administration Hydrochlorothiazide 25 mg 12/19/17 10:00 12/19/17 09:25 Hctz - PO 25 mg DAILY MAYE Administration Insulin Aspart 1 vial 12/19/17 07:00 12/19/17 09:59 Novolog Vial Sliding Scale - SQ 6 units TIDAC [facility] Administration Protocol Insulin Aspart 1 vial 12/18/17 22:00 12/18/17 21:41 Novolog Vial Sliding Scale - SQ 6 units HS MAYE Administration Protocol Losartan Potassium 100 mg 12/19/17 10:00 12/19/17 09:25 Cozaar - PO 100 mg DAILY MAYE Administration Pnt's Own Med [ 28 mg 12/18/17 16:45 12/19/17 09:26 Memantine Hcl Er 28 PO 28 mg Mg] DAILY MAYE Administration AP: Hypoglycemia T2DM, Insulin requiring HTN BGM ACHS Novolog coverage ONLY Premeals and HS Pt to restart Tresiba at 10 units daily and Novolog 6 units TID with meal at home on dishcarge. F/U with his Endo this week and adjust dos as necessary. Same discussed with pt. To call me at [phone] with any questions.
--- NOTE | 2017-12-19 11:50 | ECHO ---
Name: MADISON NASCIMENTO Exam:Adult Echocardiogram Study Date: 12/19/2017 08:12 AM Age: 67 yrs Reason For Study: SYNCOPE Height: 68 in Weight: 148 lb BSA: 1.8 m2 MMode/2D Measurements & Calculations IVSd: 0.93 cm Ao root diam: 3.2 cm LVIDd: 4.2 cm LA dimension: 3.0 cm LVIDs: 2.6 cm LVPWd: 1.0 cm EDV(Teich): 80.0 ml ESV(Teich): 23.9 ml Doppler Measurements & Calculations MV E max damien: 72.3 cm/sec MR max damien: 386.8 cm/sec MV A max damien: 71.3 cm/sec MR max P.9 mmHg MV E/A: 1.0 MV dec time: 0.57 sec TR max damien: 234.8 cm/sec Med Peak E' Damien: 5.7 cm/sec TR max P.1 mmHg Med E/e': 12.8 Lat Peak E' Damien: 7.6 cm/sec Lat E/e': 9.5 PI Vmax: 161.5 cm/sec Procedure The study was technically good with many images being of high quality. Left Ventricle The left ventricular size, thickness and function are normal. Ejection Fraction = 60-65%. Left Ventri cular Filling pattern is normal for age. Right Ventricle The right ventricle is normal in size and function. Atria Normal left and right atrial size and function. Non-dilated IVC 1.52 cm. Mitral Valve The mitral valve is normal in structure and function. There is mild to moderate mitral regurgitation. Tricuspid Valve The tricuspid valve is normal. There is mild to moderate tricuspid regurgitation. Right ventricular s ystolic pressure is 25 mmhg. Aortic Valve The aortic valve opens well. The aortic valve is normal in structure and function. The aortic valve i s trileaflet. Trace aortic regurgitation. Pulmonic Valve The pulmonic valve is not well seen, but is grossly normal. Trace pulmonic valvular regurgitation. Great Vessels The aortic root is normal size. Pericardium/Pleura There is no pericardial effusion. Interpretation Summary There is no comparison study available. The right ventricle is normal in size and function. Trace aortic regurgitation. Trace pulmonic valvular regurgitation. Ejection Fraction = 60-65%. Left Ventricular Filling pattern is normal for age. The left ventricular size, thickness and function are normal There is mild to moderate mitral regurgitation. There is mild to moderate tricuspid regurgitation. Jamarcus Baltazar MD 12/19/2017 11:49 AM
[2017-12-19 13:23] VITALS: BP 128/63; PULSE 60
[2017-12-20 16:20] VITALS: TEMP 99
== END 2017-12-19 12:08 | disposition home or self-care (01) ==
LOC: JER 19:45 → JERBED 23:25 → J6S 12-18 01:55
PROVIDERS: ADMIT Internal Medicine; ATTEND Family Medicine
PROC: 3E013VG Introduction of Insulin into Subcutaneous Tissue, Percutaneous Approach (ICD-10-PCS; principal; 2017-12-17)
PROC: 3E0337Z Introduction of Electrolytic and Water Balance Substance into Peripheral Vein, Percutaneous Approach (ICD-10-PCS; 2017-12-17)
DX: E11.649 Type 2 diabetes mellitus with hypoglycemia without coma (principal); Z79.4 Long term (current) use of insulin; Z79.84 Long term (current) use of oral hypoglycemic drugs; I10 Essential (primary) hypertension; G30.9 Alzheimer's disease, unspecified; F02.80 Dementia in other diseases classified elsewhere, unspecified severity, without behavioral disturbance, psychotic disturbance, mood disturbance, and anxiety; E78.5 Hyperlipidemia, unspecified; N17.9 Acute kidney failure, unspecified; R00.1 Bradycardia, unspecified; R94.31 Abnormal electrocardiogram [ECG] [EKG]
CPT/HCPCS: 36415; 71045-TC-FY; 80048; 80053; 81003; 82009; 82962; 83735; 84100; 84484; 85025; 85610; 85730; 87086; 93005; 93010; 93306-TC; 96372; 99285-25; G0378; J0735

== ENCOUNTER 2019-02-07 21:47 | Inpatient (IN) | payer MEDICARE, OTHER ==
--- NOTE | 2019-02-07 23:22 | PDOC ---
History of Present Illness - General Chief Complaint: SIRS, Suspected/Possible Stated Complaint: SICK - History of Present Illness Initial Comments: The pt is a 68M w/ a history of HTN and a questionable history of DM who presents for evaluation of approximately one week of productive cough and fever. The pt states he returned from [facility] today and came directly to the hospital. He has tried 'cough and fever' medicine in [facility] w/ little relief. He denies sick contacts, recent hospitalization, PALMER, vision changes, chest pain, trouble breathing, abdominal pain, N/V/C/D, dysuria, or changes in sensation. 02/07/19 23:45 Past History - Past Medical History Allergies/Adverse Reactions: Allergies Allergy/AdvReac Type Severity Reaction Status Date / Time No Known Allergies Allergy Verified 02/07/19 22:07 Home Medications: Ambulatory Orders Duloxetine HCl 30 mg PO DAILY 11/12/17 Ezetimibe 10 mg PO DAILY 11/12/17 Insulin Aspart (Niacinamide) [Fiasp 100 Unit/ml Flextouch] 5 unit SQ AC Losartan/Hydrochlorothiazide [Losartan-Hctz 100-25 mg Tab] 1 each PO DAILY 11/12 Memantine HCl [Memantine HCl ER] 28 mg PO DAILY 11/12/17 cloNIDine HCL [Catapres -] 0.1 mg PO BID 11/12/17 Amlodipine Besylate 10 mg PO DAILY #30 tab 11/13/17 Aspirin [Ecotrin] 81 mg PO DAILY #30 tab 11/13/17 Atorvastatin Ca [Lipitor] 20 mg PO HS #30 tab 11/13/17 Blood Sugar Diagnostic [Test Strips] 100 each AC #100 strip 11/13/17 Gabapentin 600 mg PO TID 11/13/17 Carvedilol 25 mg PO BID 12/17/17 Omeprazole/Sodium Bicarbonate [Omeprazole-Bicarb 40-1,100 Cap] 1 each PO DAILY 12/17/17 Aspirin [ASA -] 81 mg PO DAILY tab.chew 12/19/17 Gabapentin [Neurontin -] 600 mg PO TID capsule 12/19/17 COPD: No Dementia: Yes (Alzheimer's dementia) Diabetes: Yes Dialysis: No HTN: Yes - Psycho Social/Smoking Cessation Hx Smoking History: Current every day smoker Have you smoked in the past 12 months: Yes Number of Cigarettes Smoked Daily: 10 Information on smoking cessation initiated: Yes 'Breaking Loose' booklet given: 11/13/17 Hx Alcohol Use: No Drug/Substance Use Hx: No Substance Use Type: None Hx Substance Use Treatment: No Review of Systems - Review of Systems Able to Perform ROS?: Yes Comments:: GENERAL/CONSTITUTIONAL: +F/C; No weakness HEAD, EYES, EARS, NOSE AND THROAT: No change in vision. No change in hearing. No sore throat CARDIOVASCULAR: No chest pain or shortness of breath RESPIRATORY: +productive cough GASTROINTESTINAL: No nausea, vomiting, diarrhea or constipation GENITOURINARY: No dysuria, frequency, or change in urination MUSCULOSKELETAL: No joint or muscle swelling or pain. No neck or back pain SKIN: No rash NEUROLOGIC: No headache, vertigo, loss of consciousness, or change in strength/ sensation ENDOCRINE: No increased thirst. No abnormal weight change HEMATOLOGIC/LYMPHATIC: No anemia, easy bleeding, or history of blood clots ALLERGIC/IMMUNOLOGIC: No hives or skin allergy 02/07/19 23:21 Is the patient limited Citizen Of [place] proficient: No *Physical Exam - Vital Signs Last Vital Signs Temp Pulse Resp BP Pulse Ox 101.6 F H 78 20 130/65 93 L 02/07/19 22:04 02/07/19 22:04 02/07/19 22:04 02/07/19 22:04 02/07/19 22:04 - Physical Exam Comments: GENERAL: Awake, alert, and oriented to person/place/time, in no acute distress HEAD: No signs of trauma, normocephalic, atraumatic EYES: PERRLA, EOMI, sclera anicteric, conjunctiva clear ENT: Hearing grossly normal, nares patent, oropharynx clear without exudates. No uvular deviation. Moist mucosa LUNGS: No distress, hypoxic to 92% on RA, RML/RLL crackles and diminished breath sounds HEART: Regular rate and rhythm, normal S1 and S2, no murmurs appreciated, peripheral pulses normal and equal bilaterally ABDOMEN: Soft, nontender, normoactive bowel sounds. No guarding, no rebound EXTREMITIES: Normal inspection, Normal range of motion, no edema. No clubbing or cyanosis NEUROLOGICAL: Cranial nerves II through XII grossly intact. Normal speech, no focal sensorimotor deficits SKIN: Warm, Dry 02/07/19 23:21 ED Treatment Course - LABORATORY CBC & Chemistry Diagram: 02/07/19 23:35 02/07/19 23:35 Medical Decision Making - Medical Decision Making The pt is a 68M w/ a history of HTN and a questionable history of DM who presents for evaluation of approximately one week of productive cough and fever likely PNA. ED Course Sepsis labs sent IVF, Ofirmev Ceftriaxone, Azithromycin ECG CXR 02/07/19 23:49 Will treat clinically for PNA WBC 10.5 No anemia Lytes unremarkable No ANTONIO Glucose 474 -Insulin 5u SQ once Lactate 1.4 Trop I 0.11 -ASA UA w/o evidence of UTI Plan for admission for treatment of PNA and troponinemia Pt signed out to [facility] Admitting 02/08/19 07:20 Discharge - Discharge Information Problems reviewed: Yes Clinical Impression/Diagnosis: Hyperglycemia Pneumonia Qualifiers: Pneumonia type: due to unspecified organism Laterality: unspecified laterality Lung location: unspecified part of lung Qualified Code(s): J18.9 - Pneumonia, unspecified organism HTN (hypertension) Qualifiers: Hypertension type: unspecified Qualified Code(s): I10 - Essential (primary) hypertension Condition: Fair - Admission Yes - Follow up/Referral - Patient Discharge Instructions - Post Discharge Activity
[2019-02-07] MEDS ORDERED: SODIUM CHLORIDE 0.9% 500 ML INFUS.BAG IV ONE (23:33)
[2019-02-07] MEDS ORDERED: ACETAMINOPHEN 1000 MG/100 ML VIAL (NON FORMULARY) IVPB ONE (23:44)
[2019-02-07] MEDS ORDERED: CEFTRIAXONE 1,000 MG in DEXTROSE 5%-WATER - 50 ML IVPB ONE (23:44)
[2019-02-07] MEDS ORDERED: AZITHROMYCIN IVPB 500 MG in DEXTROSE 5%-WATER - 250 ML IVPB ONE (23:44)
[2019-02-07 23:45] LABS: BASO % 0.2 % (0-2.0); HEMATOCRIT 40.7 % (35.4-49); HEMOGLOBIN 13.3 GM/dL (11.7-16.9); LYMPH % 9.2 % (8-40); MCH 28.3 pg (25.7-33.7); MCHC 32.7 g/dl (32.0-35.9); MEAN CELL VOLUME 86.6 fl (80-96); MEAN PLT VOLUME 9.5 fl (7.5-11.1); MONO % 5.6 % (3.8-10.2); PLATELET COUNT 294 K/MM3 (134-434); RDW 14.5 % (11.9-15.9); WHITE BLOOD COUNT 10.5 K/mm3 (4.0-10.0)
[2019-02-07 23:52] LABS: INR 1.12 (0.83-1.09); PROTHROMBIN TIME (PATIENT) 13.2 SEC (9.7-13.0)
[2019-02-08] MEDS ORDERED: ACETAMINOPHEN INJECTION 100 ML IVPB ONE (00:07)
[2019-02-08] MEDS ORDERED: AZITHROMYCIN IVPB 500 MG/250 ML BAG IVPB ONE ×2 (00:07→13:18)
[2019-02-08] MEDS ORDERED: CEFTRIAXONE 1 GM/50 ML BAG ONE (00:07)
[2019-02-08 00:15] LABS: ALBUMIN 2.9 g/dl (3.4-5.0); BILIRUBIN,TOTAL 0.6 mg/dL (0.2-1); BLOOD UREA NITROGEN 20.1 mg/dL (7-18); CALCIUM 8.3 mg/dL (8.5-10.1); CREATININE 1.3 mg/dL (0.55-1.3); POTASSIUM 3.6 mmol/L (3.5-5.1); TOT PROT 6.6 g/dl (6.4-8.2)
[2019-02-08 00:19] LABS: VENOUS PC02 51.8 mmHg (38-52); VENOUS PH 7.42 (7.31-7.41); VENOUS PO2 < 49 mmHg (28-48)
--- NOTE | 2019-02-08 00:30 | PDOC ---
Documentation entered by Apolonia Stanton SCRIBE, acting as scribe for Alexa Andrade DO. Alexa Andrade DO: This documentation has been prepared by the Romy lilly Adrianna, SCRIBE, under my direction and personally reviewed by me in its entirety. I confirm that the documentation accurately reflects all work, treatment, procedures, and medical decision making performed by me. Attending Attestation - Resident Resident Name: JaepattiAntonio - ED Attending Attestation I have performed the following: I have examined & evaluated the patient, The case was reviewed & discussed with the resident, I agree w/resident's findings & plan - HPI HPI: The patient is a 68 year old male, with a significant PMH of HTN and possible DM , presenting with cough and subjective fever for one week. He endorses chills and productive cough. Patient has tried OTC meds without any relief. He returned from [facility] earlier today and came straight to the ED for evaluation. Allergies: NKA, NKDA Surgical HIstory: None reported Social History: Current everyday smoker (10 cigarettes per day). Denies EtOH or illicit drug use PCP: Dr. Tobar - Physicial Exam PE: Agree with resident exam - Medical Decision Making 02/08/19 00:27 68-year-old male trip to [facility] now with fever cough and malaise Labs reveal elevated blood sugar level as well as an elevated troponin Chest x-ray shows no obvious infiltrate though clinically patient's exam and work-up is consistent with pneumonia Ceftriaxone and azithromycin given in the emergency department Plan for admission to medical service for telemetry and serial enzymes as well as blood sugar control
[2019-02-08] MEDS ORDERED: ASPIRIN 81 MG CHEWABLE TABLETS PO ONE (00:47)
[2019-02-08] MEDS ORDERED: ASPIRIN 81 MG CHEWABLE TABLETS ONE (00:59)
[2019-02-08] MEDS ORDERED: INSULIN (NOVOLOG) ASPART 100 UNITS/ML 10ML VIAL SQ ONE (01:40)
--- NOTE | 2019-02-08 02:14 | HP ---
Admitting History and Physical - Primary Care Physician PCP: Dr. Huang - Admission Chief Complaint: cough, fever for 1 week History of Present Illness: 68 year male with PMH of Alzheimer,HTN,HLD, GERD, DM who arrived to ED for evaluation one week of productive cough and fever. Per family at bedside and patient, he returned from [facility] today and came directly to the hospital. Patient cough and fever started in [place], was taking medicine ? antibiotic with little relief. 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 Cardiovascular: Yes: HTN, Hyperlipdemia Gastrointestinal: Yes: GERD Endocrine: Yes: Diabetes Mellitus - Past Surgical History Past Surgical History: Yes: Hernia Repair - Smoking History Smoking history: Current every day smoker Have you smoked in the past 12 months: Yes Aproximately how many cigarettes per day: 10 - Alcohol/Substance Use Hx Alcohol Use: No History of Substance Use: reports: None - Social History Usual Living Arrangement: Yes: With Significant Other ADL: Independent History of Recent Travel: No Home Medications - Allergies Allergies/Adverse Reactions: Allergies Allergy/AdvReac Type Severity Reaction Status Date / Time No Known Allergies Allergy Verified 02/07/19 22:07 - Home Medications Home Medications: Ambulatory Orders Duloxetine HCl 30 mg PO DAILY 11/12/17 Ezetimibe 10 mg PO DAILY 11/12/17 Insulin Aspart (Niacinamide) [Fiasp 100 Unit/ml Flextouch] 5 unit SQ AC Losartan/Hydrochlorothiazide [Losartan-Hctz 100-25 mg Tab] 1 each PO DAILY 11/12 Memantine HCl [Memantine HCl ER] 28 mg PO DAILY 11/12/17 cloNIDine HCL [Catapres -] 0.1 mg PO BID 11/12/17 Amlodipine Besylate 10 mg PO DAILY #30 tab 11/13/17 Aspirin [Ecotrin] 81 mg PO DAILY #30 tab 11/13/17 Atorvastatin Ca [Lipitor] 20 mg PO HS #30 tab 11/13/17 Blood Sugar Diagnostic [Test Strips] 100 each MC AC #100 strip 11/13/17 Gabapentin 600 mg PO TID 11/13/17 Carvedilol 25 mg PO BID 12/17/17 Omeprazole/Sodium Bicarbonate [Omeprazole-Bicarb 40-1,100 Cap] 1 each PO DAILY 12/17/17 Aspirin [ASA -] 81 mg PO DAILY tab.chew 12/19/17 Gabapentin [Neurontin -] 600 mg PO TID capsule 12/19/17 Family Medical History Family History: Unable to Obtain Review of Systems - Review of Systems Constitutional: reports: Fever Eyes: reports: No Symptoms HENT: reports: No Symptoms Neck: reports: No Symptoms Cardiovascular: reports: No Symptoms Respiratory: reports: Cough Gastrointestinal: reports: No Symptoms Genitourinary: reports: No Symptoms Musculoskeletal: reports: No Symptoms Integumentary: reports: No Symptoms Neurological: reports: No Symptoms Endocrine: reports: No Symptoms Hematology/Lymphatic: reports: No Symptoms Psychiatric: reports: No Symptoms Physical Examination Vital Signs: Vital Signs Temperature 99.3 F 02/08/19 01:31 Pulse Rate 65 02/08/19 01:31 Respiratory Rate 15 02/08/19 01:31 Blood Pressure 138/76 02/08/19 01:31 O2 Sat by Pulse Oximetry (%) 96 02/08/19 01:31 Constitutional: Yes: Mild Distress, Thin Eyes: Yes: Conjunctiva Clear, EOM Intact HENT: Yes: Atraumatic, Normocephalic Neck: Yes: Supple, Trachea Midline Cardiovascular: Yes: Regular Rate and Rhythm Respiratory: Yes: Cough, Diminished, Rales, Rhonchi Gastrointestinal: Yes: Normal Bowel Sounds, Soft Musculoskeletal: Yes: WNL Extremities: Yes: WNL Edema: No Peripheral Pulses WNL: Yes Neurological: Yes: Alert, Oriented Labs: CBC, BMP 02/07/19 23:35 02/07/19 23:35 Imaging - Results Chest X-ray: Report Reviewed (no acute sign of infiltrate) EKG: Report Reviewed (trop # 1: 0.11 EKG: NSR @ 71) Other: Report Reviewed (Wbc:10.5, lactic acid negative, repeated second one) Problem List - Problems (1) Pneumonia Code(s): J18.9 - PNEUMONIA, UNSPECIFIED ORGANISM (2) Elevated troponin Code(s): R79.89 - OTHER SPECIFIED ABNORMAL FINDINGS OF BLOOD CHEMISTRY (3) Prerenal azotemia Code(s): R79.89 - OTHER SPECIFIED ABNORMAL FINDINGS OF BLOOD CHEMISTRY (4) Hyperglycemia Code(s): R73.9 - HYPERGLYCEMIA, UNSPECIFIED (5) Diabetes Code(s): E11.9 - TYPE 2 DIABETES MELLITUS WITHOUT COMPLICATIONS (6) Alzheimers disease Code(s): G30.9 - ALZHEIMER'S DISEASE, UNSPECIFIED; F02.80 - DEMENTIA IN OTH DISEASES CLASSD ELSWHR W/O BEHAVRL DISTURB (7) HTN (hypertension) Code(s): I10 - ESSENTIAL (PRIMARY) HYPERTENSION Assessment/Plan 68 year male with PMH of Alzheimer,HTN,HLD, GERD, DM who arrived to ED for evaluation one week of productive cough and fever. Per family at bedside and patient, he returned from [facility] today and came directly to the hospital. # clinical pneumonia -wbc: 10.5 -given Tylenol IV, Azithromax and ceftriaxone - continue with ceftriaxone - follow up urine and blood culture - follow up ID in AM - continue with Tylenol q6h # Elevated Troponin I (patient sarah cp/sob) - trop 1: (0.11), pending # 2 - EKG: NSR @ 71 - in ED given ASA - if continue to trend, consider cardiology follow up #Diabetes # Hyperglycemia random glucose: 474 -given novolog 5 units in ED - monitor FSBS - coverage with sliding scale - Appreciate Endocrinology consult - HgbA1c in am # Prenal azotemia - Likely due to Dehydration bun/cr: 20.1/1.3, given 1L NS in ED - Continue IVF - Repeat BMP in am # Hypertension/HLD - stable - Monitor BP - Continue Norvasc 10 mg daily - Continue with coreg 25mg BID - continue with Lipitor 20 mg at night - monitor lipid profile # Alzheimer's - continue with memantine hcl daily Home medication need to verified, please follow up in AM, family did not have list with them Diet: Diabetic, Low Na Diet DVT ppx: Heaprin SQ, SCDs Visit type - Emergency Visit Emergency Visit: Yes Care time: The patient presented to the Emergency Department on the above date and was hospitalized for further evaluation of their emergent condition. - New Patient This patient is new to me today: Yes Date on this admission: 02/08/19 - Critical Care Critical Care patient: No
[2019-02-08] MEDS ORDERED: ACETAMINOPHEN 325 MG TABLET (FP) PO PRN (02:49)
[2019-02-08] MEDS ORDERED: SODIUM CHLORIDE 1,000 ML IV SCH (03:00)
[2019-02-08 03:38] LABS: EPI CELLS 0.4 /HPF (0-5/HPF); HYALINE CASTS 1 /lpf (0-8); URINE APPEARANCE CLEAR; URINE BACTERIA 6.2 /hpf (NEGATIVE); URINE BILIRUBIN NEGATIVE (NEGATIVE); URINE COLOR YELLOW; URINE GLUCOSE (UA) 3+ (NEGATIVE); URINE KETONE 1+ (NEGATIVE); URINE LEUK ESTERASE NEGATIVE (NEGATIVE); URINE NITRITE NEGATIVE (NEGATIVE); URINE PROTEIN 1+ (NEGATIVE); URINE RBC 1 /hpf (0-4); URINE UROBILINOGEN 0.2 mg/dL (0.2-1.0); URINE WBC 3 /hpf (0-5)
[2019-02-08] MEDS: INSULIN SLIDING SCALE (NOVOLOG) 1 VIAL SQ SCH ×3 (06:34→18:09)
[2019-02-08 07:26] LABS: BASO % 0.3 % (0-2.0); HEMATOCRIT 37.1 % (35.4-49); HEMOGLOBIN 12.3 GM/dL (11.7-16.9); LYMPH % 18.5 % (8-40); MCH 28.7 pg (25.7-33.7); MCHC 33.3 g/dl (32.0-35.9); MEAN CELL VOLUME 86.2 fl (80-96); MEAN PLT VOLUME 9.8 fl (7.5-11.1); MONO % 6.4 % (3.8-10.2); NEUT % 74.8 % (42.8-82.8); PLATELET COUNT 279 K/MM3 (134-434); RDW 14.6 % (11.9-15.9); WHITE BLOOD COUNT 11.4 K/mm3 (4.0-10.0)
[2019-02-08 07:58] LABS: ALBUMIN 2.5 g/dl (3.4-5.0); BILIRUBIN,TOTAL 0.4 mg/dL (0.2-1); BLOOD UREA NITROGEN 15.8 mg/dL (7-18); CREATININE 1.1 mg/dL (0.55-1.3); POTASSIUM 3.6 mmol/L (3.5-5.1); TOT PROT 5.8 g/dl (6.4-8.2)
[2019-02-08] MEDS ORDERED: MEMANTINE HCL 28 MG PO SCH (10:00)
[2019-02-08] MEDS ORDERED: CEFTRIAXONE 1 GM in DEXTROSE 5%-WATER - 50 ML IVPB SCH (10:00)
[2019-02-08] MEDS ORDERED: PT OWN MED DRAWER 7, Y5N ONE (10:32)
[2019-02-08] MEDS: HEPARIN NA (PORCINE) 5,000 UNITS/ML 1ML VIAL SQ SCH ×2 (10:45→23:23)
[2019-02-08] MEDS: amLODIPine BESYLATE 10 MG TABLET (FP) PO SCH (10:45)
[2019-02-08] MEDS: CARVEDILOL 25 MG TABLET (FP) PO SCH ×2 (10:45→23:23)
[2019-02-08] MEDS: INSULIN (LEVEMIR) 100 UNITS/ML UNITS SQ SCH ×2 (11:15→23:23)
--- NOTE | 2019-02-08 11:23 | PN ---
Progress Note, Physician Chief Complaint: patient seen and examined says his breathing is slightly better noted to have inc WBC count of 11 - Current Medication List Current Medications: Active Medications Acetaminophen (Tylenol -) 650 mg PO Q6H PRN PRN Reason: PAIN OR FEVER Amlodipine Besylate (Norvasc -) 10 mg PO DAILY [facility] Last Admin: 02/08/19 10:45 Dose: 10 mg Atorvastatin Calcium (Lipitor -) 20 mg PO HS [facility] Carvedilol (Coreg -) 25 mg PO BID [facility] Last Admin: 02/08/19 10:45 Dose: 25 mg Heparin Sodium (Porcine) (Heparin -) 5,000 unit SQ BID [facility] Last Admin: 02/08/19 10:45 Dose: 5,000 unit Sodium Chloride (Normal Saline -) 1,000 mls @ 50 mls/hr IV ASDIR [facility] Stop: 02/09/19 02:53 Last Admin: 02/08/19 03:05 Dose: 50 mls/hr Ceftriaxone Sodium 1 gm/ (Dextrose) 50 mls @ 100 mls/hr IVPB DAILY [facility]; Protocol Stop: 02/14/19 23:59 Last Admin: 02/08/19 10:46 Dose: 100 mls/hr Insulin Aspart (Novolog Vial Sliding Scale -) [facility]; Protocol Last Admin: 02/08/19 06:34 Dose: 4 unit Insulin Detemir (Levemir Vial) 10 units SQ [facility] Non-Formulary Medication (Memantine Hcl [Memantine Hcl Er]) 28 mg PO DAILY [facility] - Objective Vital Signs: Vital Signs Temperature 98.6 F 02/08/19 10:48 Pulse Rate 63 02/08/19 10:48 Respiratory Rate 17 02/08/19 10:48 Blood Pressure 156/75 02/08/19 10:48 O2 Sat by Pulse Oximetry (%) 97 02/08/19 10:48 Constitutional: Yes: Calm Cardiovascular: Yes: Regular Rate and Rhythm, S1, S2 Respiratory: Yes: Rhonchi Gastrointestinal: Yes: Normal Bowel Sounds, Soft Edema: No Labs: CBC, BMP 02/08/19 06:25 02/08/19 06:00 INR, PTT INR 1.12 (0.83-1.09) H 02/07/19 23:35 Problem List - Problems (1) Diabetes Assessment/Plan: levemir started uncontrolled Dm hgab1c in 14.5 endocrine consult Code(s): E11.9 - TYPE 2 DIABETES MELLITUS WITHOUT COMPLICATIONS Qualifiers: Diabetes mellitus type: type 2 (2) Elevated troponin Assessment/Plan: trend troponin echo maybe stress related to pna Code(s): R79.89 - OTHER SPECIFIED ABNORMAL FINDINGS OF BLOOD CHEMISTRY (3) Pneumonia Assessment/Plan: iv zithromax and rocpehin rapid flu pending cultures pending Code(s): J18.9 - PNEUMONIA, UNSPECIFIED ORGANISM Qualifiers: Pneumonia type: due to unspecified organism Laterality: unspecified laterality Lung location: unspecified part of lung Qualified Code(s): J18.9 - Pneumonia, unspecified organism (4) HTN (hypertension) Assessment/Plan: coreg norvasc and start ARB given DM Code(s): I10 - ESSENTIAL (PRIMARY) HYPERTENSION Qualifiers: Hypertension type: unspecified Qualified Code(s): I10 - Essential (primary ) hypertension
--- NOTE | 2019-02-08 12:01 | PN ---
Progress Note (short form) - Note Progress Note: ID consult dictated imp/reccd 68 yo man with HTN, DM he has been living in [facility] for last 5 months brought by family straight to ED tried to call daughter- no answer, his number is disconnected gives me a 2 to 3 month history of cough with fever and weight loss didnot see a doctor there no hemoptysis agreeable to HIV testing r/o pneumonia r/o TB afb isolation sputum for culture sputum for afb times [address] continue rocephin/zithromax hiv d/w ER nursing staff Problem List - Problems (1) Pneumonia Code(s): J18.9 - PNEUMONIA, UNSPECIFIED ORGANISM Qualifiers: Pneumonia type: due to unspecified organism Laterality: unspecified laterality Lung location: unspecified part of lung Qualified Code(s): J18.9 - Pneumonia, unspecified organism (2) Diabetes Code(s): E11.9 - TYPE 2 DIABETES MELLITUS WITHOUT COMPLICATIONS Qualifiers: Diabetes mellitus type: type 2 (3) HTN (hypertension) Code(s): I10 - ESSENTIAL (PRIMARY) HYPERTENSION Qualifiers: Hypertension type: unspecified Qualified Code(s): I10 - Essential (primary ) hypertension
--- NOTE | 2019-02-08 12:14 | EKG ---
Test Reason : Blood Pressure : / mmHG Vent. Rate : 071 BPM Atrial Rate : 071 BPM P-R Int : 154 ms QRS Dur : 098 ms QT Int : 432 ms P-R-T Axes : 072 -45 240 degrees QTc Int : 469 ms NORMAL SINUS RHYTHM LEFT AXIS DEVIATION MINIMAL VOLTAGE CRITERIA FOR LVH, MAY BE NORMAL VARIANT ANTERIOR INFARCT , AGE UNDETERMINED ABNORMAL ECG WHEN COMPARED WITH ECG OF 18-DEC-2017 15:04, T WAVE INVERSION MORE EVIDENT IN INFERIOR LEADS T WAVE INVERSION LESS EVIDENT IN LATERAL LEADS Confirmed by NEHA RICK MD ([id number]) on 02/08/2019 12:14:48 PM Referred By: Confirmed By:NEHA RICK MD
[2019-02-08] MEDS ORDERED: LOSARTAN POTASSIUM 50 MG TABLET (FP) ONE (13:17)
[2019-02-08] MEDS: LOSARTAN POTASSIUM 50 MG TABLET (FP) PO SCH (13:26)
[2019-02-08] MEDS: AZITHROMYCIN IVPB 500 MG/250 ML BAG IVPB SCH (13:42)
[2019-02-08] MEDS ORDERED: ATORVASTATIN CA 20 MG TABLET (FP) ONE (23:14)
[2019-02-08] MEDS ORDERED: CARVEDILOL 12.5 MG TABLET (FP) ONE (23:14)
[2019-02-08] MEDS ORDERED: INSULIN (LEVEMIR) 100 UNITS/ML UNITS SQ ONE (23:14)
[2019-02-08] MEDS ORDERED: HEPARIN NA (PORCINE) 5,000 UNITS/ML 1ML VIAL ONE (23:15)
[2019-02-08] MEDS ORDERED: ACETAMINOPHEN 325 MG TABLET (FP) ONE (23:17)
[2019-02-08] MEDS: ATORVASTATIN CA 20 MG TABLET (FP) PO SCH (23:23)
[2019-02-09] MEDS: INSULIN SLIDING SCALE (NOVOLOG) 1 VIAL SQ SCH ×3 (06:20→17:46)
[2019-02-09] MEDS ORDERED: INSULIN (NOVOLOG) ASPART 100 UNITS/ML 10ML VIAL ONE ×2 (06:22→11:58)
[2019-02-09 06:58] LABS: BASO % 0.4 % (0-2.0); EOS % 0.1 % (0-4.5); HEMATOCRIT 35.6 % (35.4-49); HEMOGLOBIN 11.7 GM/dL (11.7-16.9); LYMPH % 29.2 % (8-40); MCH 28.5 pg (25.7-33.7); MEAN CELL VOLUME 86.4 fl (80-96); MEAN PLT VOLUME 9.8 fl (7.5-11.1); MONO % 7.3 % (3.8-10.2); PLATELET COUNT 258 K/MM3 (134-434); RBC 4.12 M/mm3 (4.00-5.60); RDW 14.7 % (11.9-15.9); WHITE BLOOD COUNT 6.6 K/mm3 (4.0-10.0)
--- NOTE | 2019-02-09 09:16 | CONS ---
DATE OF CONSULTATION: 02/08/2019 History was obtained from the patient and from the chart. This is a 68-year-old man with past medical history of mild dementia, hypertension, hyperlipidemia, diabetes, who presents to the emergency room with cough and fever. He had returned from [facility] and as brought by family directly to the hospital. Patient gives a history of fever and a cough that started 2-3 months ago while he was in [facility]. He notes that he has had weight loss as well. He denies any hemoptysis, denies any history of tuberculosis. He states in [facility] he did not see a doctor and he was not taking any of his medications. He was there for 5 months. PAST MEDICAL HISTORY: Notable for hypertension, hyperlipidemia, GERD, and diabetes. SURGICAL HISTORY: He has had a hernia repair. He is followed by . He was able to give all of this history himself. I suspect the dementia is mild. ALLERGIES: He has no known drug allergies. MEDICATIONS: Include duloxetine, Zetia, insulin, losartan/hydrochlorothiazide, memantine, clonidine, amlodipine, aspirin, atorvastatin, gabapentin, chloride, omeprazole. FAMILY HISTORY: He denies any history of tuberculosis. SOCIAL HISTORY: He lives with his family. He is a former cigarette smoker. He stopped smoking when he started coughing. He is an occasional alcohol user. There is no history of any illicit drug use. PHYSICAL EXAMINATION: Vital Signs: His temperature max is 101.6, current temperature is 99, pulse is 66, blood pressure is 155/84, respiratory rate is 18. He is saturating 100% on 2 L. He shows me a container with a copious amount of purulent production. HEENT: Normocephalic. His eyes are anicteric. He had dentures. He is edentulous. He has no thrush. Neck: Supple. Lungs: Have scattered rhonchi. Heart: Regular rate and rhythm. Abdomen: Soft, nontender. Extremities: Without edema. He has no palpable adenopathy. LABORATORY: White count was 11.4, hemoglobin 12.3, platelets are 279, BUN and creatinine are 15 and 1.1. Liver function tests are normal. Troponin is 0.07. The sugar was 292 with a hemoglobin A1c of 14.3. Urinalysis was notable for glucose, ketones, and protein. Influenza screen was negative. Chest x-ray was read as clear. He was started on ceftriaxone and Zithromax. IN SUMMARY: 1. This is a 68-year-old man who gives a history of 2-3 months of cough, fever, and weight loss. With these symptoms, I think it would be reasonable to isolate him. He is also agreeable to HIV testing. I would isolate him for AFB and would obtain sputum for culture and for AFB x3. I would obtain a noncontrast chest CT. Continue with Ceftin and Zithromax and obtain an HIV test. 2. History of hypertension. 3. History of diabetes. I tried to call the family and was not able to reach the daughter. The number listed as his home is disconnected. Will try to contact the family tomorrow with further recommendations to follow. ALESIA ARNOLD M.D. [facility]/[id number]
[2019-02-09] MEDS ORDERED: AZITHROMYCIN IVPB 500 MG/250 ML BAG IVPB ONE (10:00)
[2019-02-09] MEDS ORDERED: CEFTRIAXONE 1 GM/50 ML BAG ONE (10:01)
[2019-02-09] MEDS: LOSARTAN POTASSIUM 50 MG TABLET (FP) PO SCH (10:20)
[2019-02-09] MEDS: AZITHROMYCIN IVPB 500 MG/250 ML BAG IVPB SCH (10:20)
[2019-02-09] MEDS: HEPARIN NA (PORCINE) 5,000 UNITS/ML 1ML VIAL SQ SCH ×2 (10:20→22:40)
[2019-02-09] MEDS: amLODIPine BESYLATE 10 MG TABLET (FP) PO SCH (10:20)
[2019-02-09] MEDS: CARVEDILOL 25 MG TABLET (FP) PO SCH ×2 (10:20→22:41)
[2019-02-09] MEDS: CEFTRIAXONE 1 GM in DEXTROSE 5%-WATER - 50 ML IVPB SCH (10:20)
--- NOTE | 2019-02-09 12:52 | PN ---
Progress Note, Physician Chief Complaint: seen and examined coughing thick yellowish sputum in airborne isolation - Current Medication List Current Medications: Active Medications Acetaminophen (Tylenol -) 650 mg PO Q6H PRN PRN Reason: PAIN OR FEVER Amlodipine Besylate (Norvasc -) 10 mg PO DAILY REPLACED BY [facility] Last Admin: 02/09/19 10:20 Dose: 10 mg Atorvastatin Calcium (Lipitor -) 20 mg PO HS REPLACED BY [facility] Last Admin: 02/08/19 23:23 Dose: 20 mg Carvedilol (Coreg -) 25 mg PO BID REPLACED BY [facility] Last Admin: 02/09/19 10:20 Dose: 25 mg Heparin Sodium (Porcine) (Heparin -) 5,000 unit SQ BID REPLACED BY [facility] Last Admin: 02/09/19 10:20 Dose: 5,000 unit Azithromycin (Zithromax 500mg Ivpb (Pre-Docked)) 500 mg in 250 mls @ 250 mls/ hr IVPB DAILY REPLACED BY [facility] Last Admin: 02/09/19 10:20 Dose: 250 mls/hr Ceftriaxone Sodium 1 gm/ (Dextrose) 50 mls @ 100 mls/hr IVPB DAILY REPLACED BY [facility]; Protocol Last Admin: 02/09/19 10:20 Dose: 100 mls/hr Insulin Aspart (Novolog Vial Sliding Scale -) 1 vial SQ TIDAC REPLACED BY [facility]; Protocol Last Admin: 02/09/19 12:05 Dose: 4 unit Insulin Detemir (Levemir Vial) 10 units SQ HS REPLACED BY [facility] Last Admin: 02/08/19 23:23 Dose: Not Given Losartan Potassium (Cozaar -) 50 mg PO DAILY REPLACED BY [facility] Last Admin: 02/09/19 10:20 Dose: 50 mg Non-Formulary Medication (Memantine Hcl [Memantine Hcl Er]) 28 mg PO DAILY REPLACED BY [facility] - Objective Vital Signs: Vital Signs Temperature 98.4 F 02/09/19 10:12 Pulse Rate 60 02/09/19 10:12 Respiratory Rate 18 02/09/19 10:12 Blood Pressure 137/66 02/09/19 10:12 O2 Sat by Pulse Oximetry (%) 94 L 02/09/19 10:15 Constitutional: Yes: Calm Cardiovascular: Yes: Regular Rate and Rhythm Respiratory: Yes: Rhonchi Gastrointestinal: Yes: Normal Bowel Sounds, Soft Edema: No Neurological: Yes: Alert, Oriented Labs: CBC, BMP 02/09/19 06:15 02/08/19 06:00 INR, PTT INR 1.12 (0.83-1.09) H 02/07/19 23:35 Problem List - Problems (1) Cough Assessment/Plan: airborne isolation rule out TB quantiferon ordered sputum AFB sent out result pending iv abx Code(s): R05 - COUGH (2) Diabetes Assessment/Plan: levemir started uncontrolled Dm hgab1c in 14.5 endocrine consult Code(s): E11.9 - TYPE 2 DIABETES MELLITUS WITHOUT COMPLICATIONS Qualifiers: Diabetes mellitus type: type 2 (3) Elevated troponin Assessment/Plan: trend troponin echo maybe stress related to pna Code(s): R79.89 - OTHER SPECIFIED ABNORMAL FINDINGS OF BLOOD CHEMISTRY (4) Pneumonia Assessment/Plan: iv zithromax and rocpehin rapid flu pending cultures pending sputum AFBsent - pending airborn iisolation Microbiology 02/07/19 23:48 Blood - Peripheral Venous Blood Culture - Preliminary NO GROWTH OBTAINED AFTER 24 HOURS, INCUBATION TO CONTINUE FOR 4 DAYS. 02/07/19 23:35 Blood - Peripheral Venous Blood Culture - Preliminary NO GROWTH OBTAINED AFTER 24 HOURS, INCUBATION TO CONTINUE FOR 4 DAYS. Code(s): J18.9 - PNEUMONIA, UNSPECIFIED ORGANISM Qualifiers: Pneumonia type: due to unspecified organism Laterality: unspecified laterality Lung location: unspecified part of lung Qualified Code(s): J18.9 - Pneumonia, unspecified organism (5) HTN (hypertension) Assessment/Plan: coreg norvasc and start ARB given DM Code(s): I10 - ESSENTIAL (PRIMARY) HYPERTENSION Qualifiers: Hypertension type: unspecified Qualified Code(s): I10 - Essential (primary ) hypertension
[2019-02-09] MEDS: ATORVASTATIN CA 20 MG TABLET (FP) PO SCH (22:41)
[2019-02-09] MEDS: INSULIN (LEVEMIR) 100 UNITS/ML UNITS SQ SCH (22:44)
[2019-02-10] MEDS: INSULIN SLIDING SCALE (NOVOLOG) 1 VIAL SQ SCH ×4 (06:07→22:16)
[2019-02-10] MEDS ORDERED: cefTRIAXone SODIUM 1 GM VIAL ONE (08:26)
[2019-02-10] MEDS ORDERED: DEXTROSE 5%-WATER - 50 ML IVPB ONE (08:26)
[2019-02-10 08:59] LABS: BASO % 0.9 % (0-2.0); EOS % 0.1 % (0-4.5); HEMATOCRIT 34.7 % (35.4-49); HEMOGLOBIN 11.8 GM/dL (11.7-16.9); LYMPH % 31.5 % (8-40); MCH 28.6 pg (25.7-33.7); MEAN CELL VOLUME 84.3 fl (80-96); MEAN PLT VOLUME 9.7 fl (7.5-11.1); MONO % 7.9 % (3.8-10.2); NEUT % 59.6 % (42.8-82.8); PLATELET COUNT 302 K/MM3 (134-434); RBC 4.12 M/mm3 (4.00-5.60); RDW 14.7 % (11.9-15.9); WHITE BLOOD COUNT 4.6 K/mm3 (4.0-10.0)
[2019-02-10 09:27] LABS: ALBUMIN 2.4 g/dl (3.4-5.0); BILIRUBIN,TOTAL 0.5 mg/dL (0.2-1); BLOOD UREA NITROGEN 7.7 mg/dL (7-18); CALCIUM 8.3 mg/dL (8.5-10.1); CREATININE 0.8 mg/dL (0.55-1.3); TOT PROT 5.7 g/dl (6.4-8.2)
[2019-02-10] MEDS: CARVEDILOL 25 MG TABLET (FP) PO SCH ×2 (10:03→22:08)
[2019-02-10] MEDS: amLODIPine BESYLATE 10 MG TABLET (FP) PO SCH (10:03)
[2019-02-10] MEDS: HEPARIN NA (PORCINE) 5,000 UNITS/ML 1ML VIAL SQ SCH ×2 (10:03→22:08)
[2019-02-10] MEDS: LOSARTAN POTASSIUM 50 MG TABLET (FP) PO SCH (10:03)
[2019-02-10] MEDS: AZITHROMYCIN IVPB 500 MG/250 ML BAG IVPB SCH (10:03)
[2019-02-10] MEDS: CEFTRIAXONE 1 GM in DEXTROSE 5%-WATER - 50 ML IVPB SCH (11:02)
--- NOTE | 2019-02-10 15:41 | PN ---
Progress Note, Physician History of Present Illness: AWAKE, ALERT OFFERS NO COMPLAINTS DENIES CHEST PAIN OCCASIONAL COUGH DENIES HEMOPTYSIS NO C/O F/C - Current Medication List Current Medications: Active Medications Acetaminophen (Tylenol -) 650 mg PO Q6H PRN PRN Reason: PAIN OR FEVER Last Admin: 02/10/19 06:07 Dose: 650 mg Amlodipine Besylate (Norvasc -) 10 mg PO DAILY [facility] Last Admin: 02/10/19 10:03 Dose: 10 mg Atorvastatin Calcium (Lipitor -) 20 mg PO HS [facility] Last Admin: 02/09/19 22:41 Dose: 20 mg Carvedilol (Coreg -) 25 mg PO BID [facility] Last Admin: 02/10/19 10:03 Dose: 25 mg Heparin Sodium (Porcine) (Heparin -) 5,000 unit SQ BID [facility] Last Admin: 02/10/19 10:03 Dose: 5,000 unit Azithromycin (Zithromax 500mg Ivpb (Pre-Docked)) 500 mg in 250 mls @ 250 mls/ hr IVPB DAILY [facility] Last Admin: 02/10/19 10:03 Dose: 250 mls/hr Ceftriaxone Sodium 1 gm/ (Dextrose) 50 mls @ 100 mls/hr IVPB DAILY [facility]; Protocol Last Admin: 02/10/19 11:02 Dose: 100 mls/hr Insulin Aspart (Novolog Vial Sliding Scale -) 1 vial SQ TIDAC [facility]; Protocol Last Admin: 02/10/19 12:11 Dose: 2 unit Insulin Detemir (Levemir Vial) 10 units SQ HS [facility] Last Admin: 02/09/19 22:44 Dose: 10 units Losartan Potassium (Cozaar -) 50 mg PO DAILY [facility] Last Admin: 02/10/19 10:03 Dose: 50 mg Non-Formulary Medication (Memantine Hcl [Memantine Hcl Er]) 28 mg PO DAILY [facility] - Objective Vital Signs: Vital Signs Temperature 98.3 F 02/10/19 14:21 Pulse Rate 55 L 02/10/19 14:21 Respiratory Rate 20 02/10/19 14:21 Blood Pressure 125/65 02/10/19 14:21 O2 Sat by Pulse Oximetry (%) 92 L 02/09/19 21:00 Constitutional: Yes: No Distress Cardiovascular: Yes: Regular Rate and Rhythm, S1, S2 Respiratory: Yes: Rhonchi Gastrointestinal: Yes: Normal Bowel Sounds, Soft Edema: No Labs: CBC, BMP 02/10/19 07:53 02/10/19 07:53 INR, PTT INR 1.12 (0.83-1.09) H 02/07/19 23:35 Assessment/Plan PNEUMONIA R/O TB FEVER/ LEUKOCYTOSIS IMPROVED AWAIT SPUTUM AFB CONTINUE ZITHROMAX/ CEFTRIAXONE
[2019-02-10] MEDS ORDERED: POTASSIUM CHLORIDE TABS 10 MEQ TABLET.ER (FP) PO ONE (16:18)
--- NOTE | 2019-02-10 16:19 | PN ---
Progress Note, Physician Chief Complaint: IN BED ASLEEP EVENTS REVIEWED - Current Medication List Current Medications: Active Medications Acetaminophen (Tylenol -) 650 mg PO Q6H PRN PRN Reason: PAIN OR FEVER Last Admin: 02/10/19 06:07 Dose: 650 mg Amlodipine Besylate (Norvasc -) 10 mg PO DAILY [facility] Last Admin: 02/10/19 10:03 Dose: 10 mg Atorvastatin Calcium (Lipitor -) 20 mg PO HS [facility] Last Admin: 02/09/19 22:41 Dose: 20 mg Carvedilol (Coreg -) 25 mg PO BID [facility] Last Admin: 02/10/19 10:03 Dose: 25 mg Heparin Sodium (Porcine) (Heparin -) 5,000 unit SQ BID [facility] Last Admin: 02/10/19 10:03 Dose: 5,000 unit Azithromycin (Zithromax 500mg Ivpb (Pre-Docked)) 500 mg in 250 mls @ 250 mls/ hr IVPB DAILY [facility] Last Admin: 02/10/19 10:03 Dose: 250 mls/hr Ceftriaxone Sodium 1 gm/ (Dextrose) 50 mls @ 100 mls/hr IVPB DAILY [facility]; Protocol Last Admin: 02/10/19 11:02 Dose: 100 mls/hr Insulin Aspart (Novolog Vial Sliding Scale -) 1 vial SQ TIDAC [facility]; Protocol Last Admin: 02/10/19 12:11 Dose: 2 unit Insulin Detemir (Levemir Vial) 10 units SQ HS [facility] Last Admin: 02/09/19 22:44 Dose: 10 units Losartan Potassium (Cozaar -) 50 mg PO DAILY [facility] Last Admin: 02/10/19 10:03 Dose: 50 mg Non-Formulary Medication (Memantine Hcl [Memantine Hcl Er]) 28 mg PO DAILY [facility] Potassium Chloride (K-Dur -) 40 meq PO ONCE ONE Stop: 02/10/19 16:19 - Objective Vital Signs: Vital Signs Temperature 98.3 F 02/10/19 14:21 Pulse Rate 55 L 02/10/19 14:21 Respiratory Rate 20 02/10/19 14:21 Blood Pressure 125/65 02/10/19 14:21 O2 Sat by Pulse Oximetry (%) 92 L 02/09/19 21:00 Constitutional: Yes: Mild Distress Cardiovascular: Yes: Regular Rate and Rhythm Respiratory: Yes: Cough, On Nasal O2, Rhonchi Gastrointestinal: Yes: Soft Genitourinary: Yes: Other Labs: CBC, BMP 02/10/19 07:53 02/10/19 07:53 INR, PTT INR 1.12 (0.83-1.09) H 02/07/19 23:35 Problem List - Problems (1) Diabetes Code(s): E11.9 - TYPE 2 DIABETES MELLITUS WITHOUT COMPLICATIONS Qualifiers: Diabetes mellitus type: type 2 Diabetes mellitus group home insulin use: without sheep rancher use Diabetes mellitus complication status: with diabetic arthropathy (2) HTN (hypertension) Code(s): I10 - ESSENTIAL (PRIMARY) HYPERTENSION Qualifiers: Hypertension type: unspecified Qualified Code(s): I10 - Essential (primary ) hypertension (3) Hyperglycemia Code(s): R73.9 - HYPERGLYCEMIA, UNSPECIFIED (4) Pneumonia Code(s): J18.9 - PNEUMONIA, UNSPECIFIED ORGANISM Qualifiers: Pneumonia type: due to unspecified organism Laterality: unspecified laterality Lung location: unspecified part of lung Qualified Code(s): J18.9 - Pneumonia, unspecified organism (5) Prerenal azotemia Code(s): R79.89 - OTHER SPECIFIED ABNORMAL FINDINGS OF BLOOD CHEMISTRY (6) Alzheimers disease Code(s): G30.9 - ALZHEIMER'S DISEASE, UNSPECIFIED; F02.80 - DEMENTIA IN OTH DISEASES CLASSD ELSWHR W/O BEHAVRL DISTURB Assessment/Plan IV ABX PER ID PULM EVAL 02 SUPPORT/NEBS ENDOCRINE F/U OOB TO CHAIR DVT PROPHYLAXIS
[2019-02-10] MEDS ORDERED: INSULIN (NOVOLOG) ASPART 100 UNITS/ML 10ML VIAL ONE (18:18)
--- NOTE | 2019-02-10 18:28 | CONSULT ---
Consult Consult Specialty:: endocrine Referred by:: hayde gooden Reason for Consultation:: T2 DM - History of Present Illness Chief Complaint: high sugars despite poor appetite History of Present Illness: 68 year male with PMH of T2 DM,Alzheimer,HTN,HLD, GERD, has had productive cough and fever. Per family at bedside and patient, he returned from [facility] today and came directly to the hospital. Patient cough and fever started in [place], took antibiotic with little relief. Patient denies hemoptysis,nauasea vomiting diarhea,or chest pain.he does not remember insulin or doses, does not check blood sugars at home. - Past Medical History MERCURY RECOVERER: Yes: Alzheimer's Cardio/Vascular: Yes: HTN, Hyperlipdemia Gastrointestinal: Yes: GERD Endocrine: Yes: Diabetes Mellitus - Past Surgical History Past Surgical History: Yes: Hernia Repair - Alcohol/Substance Use Hx Alcohol Use: No History of Substance Use: reports: None - Smoking History Smoking history: Former smoker Have you smoked in the past 12 months: Yes Aproximately how many cigarettes per day: 10 - Social History ADL: Independent History of Recent Travel: No Home Medications - Allergies Allergies/Adverse Reactions: Allergies Allergy/AdvReac Type Severity Reaction Status Date / Time No Known Allergies Allergy Verified 02/07/19 22:07 - Home Medications Home Medications: Ambulatory Orders Duloxetine HCl 30 mg PO DAILY 11/12/17 Ezetimibe 10 mg PO DAILY 11/12/17 Insulin Aspart (Niacinamide) [Fiasp 100 Unit/ml Flextouch] 5 unit SQ AC Losartan/Hydrochlorothiazide [Losartan-Hctz 100-25 mg Tab] 1 each PO DAILY 11/12 Memantine HCl [Memantine HCl ER] 28 mg PO DAILY 11/12/17 cloNIDine HCL [Catapres -] 0.1 mg PO BID 11/12/17 Amlodipine Besylate 10 mg PO DAILY #30 tab 11/13/17 Aspirin [Ecotrin] 81 mg PO DAILY #30 tab 11/13/17 Atorvastatin Ca [Lipitor] 20 mg PO HS #30 tab 11/13/17 Blood Sugar Diagnostic [Test Strips] 100 each MC AC #100 strip 11/13/17 Gabapentin 600 mg PO TID 11/13/17 Carvedilol 25 mg PO BID 12/17/17 Omeprazole/Sodium Bicarbonate [Omeprazole-Bicarb 40-1,100 Cap] 1 each PO DAILY 12/17/17 Aspirin [ASA -] 81 mg PO DAILY tab.chew 12/19/17 Gabapentin [Neurontin -] 600 mg PO TID capsule 12/19/17 Review of Systems - Review of Systems Constitutional: reports: Lethargy, Weakness Eyes: reports: Blurred Vision HENT: reports: No Symptoms Neck: reports: No Symptoms Cardiovascular: reports: Shortness of Breath Respiratory: reports: Exercise Intolerance, SOB on Exertion Gastrointestinal: reports: Bloating Genitourinary: reports: Frequency Breasts: reports: No Symptoms Reported Musculoskeletal: reports: Muscle Cramps, Muscle Weakness Endocrine: reports: Unexplained Weight Loss Physical Exam Vital Signs: Vital Signs Temperature 98.3 F 02/10/19 14:21 Pulse Rate 55 L 02/10/19 14:21 Respiratory Rate 20 02/10/19 14:21 Blood Pressure 125/65 02/10/19 14:21 O2 Sat by Pulse Oximetry (%) 92 L 02/09/19 21:00 Constitutional: Yes: Calm Eyes: Yes: EOM Intact HENT: Yes: Normocephalic Neck: Yes: Trachea Midline Cardiovascular: Yes: Regular Rate and Rhythm Respiratory: Yes: SOB, Tachypnea Gastrointestinal: Yes: Normal Bowel Sounds ...Rectal Exam: Yes: Deferred Renal/: Yes: WNL Extremities: Yes: WNL Edema: No Integumentary: Yes: WNL Neurological: Yes: Alert Labs: CBC, BMP 02/10/19 07:53 02/10/19 07:53 Problem List - Problems (1) Cough Code(s): R05 - COUGH (2) Diabetes Code(s): E11.9 - TYPE 2 DIABETES MELLITUS WITHOUT COMPLICATIONS Qualifiers: Diabetes mellitus type: type 2 Diabetes mellitus intermediate designer insulin use: without intermediate designer use Diabetes mellitus complication status: with diabetic arthropathy (3) Elevated troponin Code(s): R79.89 - OTHER SPECIFIED ABNORMAL FINDINGS OF BLOOD CHEMISTRY (4) HTN (hypertension) Code(s): I10 - ESSENTIAL (PRIMARY) HYPERTENSION Qualifiers: Hypertension type: unspecified Qualified Code(s): I10 - Essential (primary ) hypertension (5) Hyperglycemia Code(s): R73.9 - HYPERGLYCEMIA, UNSPECIFIED (6) Pneumonia Code(s): J18.9 - PNEUMONIA, UNSPECIFIED ORGANISM Qualifiers: Pneumonia type: due to unspecified organism Laterality: unspecified laterality Lung location: unspecified part of lung Qualified Code(s): J18.9 - Pneumonia, unspecified organism (7) Prerenal azotemia Code(s): R79.89 - OTHER SPECIFIED ABNORMAL FINDINGS OF BLOOD CHEMISTRY Assessment/Plan Current Active Problems ACS (acute coronary syndrome) (Acute) Cough (Acute) Diabetes (Acute) Elevated troponin (Acute) HTN (hypertension) (Acute) Hyperglycemia (Acute) Pneumonia (Acute) Prerenal azotemia (Acute) Abnormal Lab Results 02/10/19 02/10/19 07:53 07:53 Hct 34.7 L Potassium 3.0 L Anion Gap 6 L Random Glucose 154 H Calcium 8.3 L Total Protein 5.7 L Albumin 2.4 L Laboratory Results - last 24 hr 02/09/19 02/09/19 02/10/19 17:33 22:20 06:00 WBC RBC Hgb Hct MCV MCH MCHC RDW Plt Count MPV Absolute Neuts (auto) Neutrophils % Lymphocytes % Monocytes % Eosinophils % Basophils % Nucleated RBC % Sodium Potassium Chloride Carbon Dioxide Anion Gap BUN Creatinine Est GFR (CKD-EPI)AfAm Est GFR (CKD-EPI)NonAf POC Glucometer 149 260 200 Random Glucose Calcium Total Bilirubin AST ALT Alkaline Phosphatase Total Protein Albumin HIV 1&2 Antibody Screen HIV P24 Antigen 02/10/19 02/10/19 02/10/19 07:53 07:53 07:53 WBC 4.6 RBC 4.12 Hgb 11.8 Hct 34.7 L MCV 84.3 MCH 28.6 MCHC 34.0 RDW 14.7 Plt Count 302 MPV 9.7 Absolute Neuts (auto) 2.7 Neutrophils % 59.6 Lymphocytes % 31.5 Monocytes % 7.9 Eosinophils % 0.1 Basophils % 0.9 Nucleated RBC % 0 Sodium 138 Potassium 3.0 L Chloride 100 Carbon Dioxide 32 Anion Gap 6 L BUN 7.7 Creatinine 0.8 Est GFR (CKD-EPI)AfAm 107.13 Est GFR (CKD-EPI)NonAf 92.44 POC Glucometer Random Glucose 154 H Calcium 8.3 L Total Bilirubin 0.5 AST 31 ALT 18 Alkaline Phosphatase 95 Total Protein 5.7 L Albumin 2.4 L HIV 1&2 Antibody Screen Negative HIV P24 Antigen Negative 02/10/19 02/10/19 12:07 16:35 WBC RBC Hgb Hct MCV MCH MCHC RDW Plt Count MPV Absolute Neuts (auto) Neutrophils % Lymphocytes % Monocytes % Eosinophils % Basophils % Nucleated RBC % Sodium Potassium Chloride Carbon Dioxide Anion Gap BUN Creatinine Est GFR (CKD-EPI)AfAm Est GFR (CKD-EPI)NonAf POC Glucometer 167 170 Random Glucose Calcium Total Bilirubin AST ALT Alkaline Phosphatase Total Protein Albumin HIV 1&2 Antibody Screen HIV P24 Antigen plan: bgm qid novolog scale levemir 15 units bid diet nutrittion consult
[2019-02-10] MEDS: ATORVASTATIN CA 20 MG TABLET (FP) PO SCH (22:08)
[2019-02-10] MEDS: INSULIN (LEVEMIR) 100 UNITS/ML UNITS SQ SCH (22:20)
[2019-02-11] MEDS: INSULIN SLIDING SCALE (NOVOLOG) 1 VIAL SQ SCH ×4 (06:07→22:23)
[2019-02-11 06:54] LABS: BASO % 1.3 % (0-2.0); EOS % 0.6 % (0-4.5); HEMATOCRIT 36.2 % (35.4-49); HEMOGLOBIN 12.3 GM/dL (11.7-16.9); LYMPH % 42.4 % (8-40); MEAN CELL VOLUME 85.3 fl (80-96); MEAN PLT VOLUME 10.4 fl (7.5-11.1); MONO % 10.7 % (3.8-10.2); PLATELET COUNT 303 K/MM3 (134-434); RBC 4.24 M/mm3 (4.00-5.60); RDW 14.3 % (11.9-15.9)
[2019-02-11 07:28] LABS: BLOOD UREA NITROGEN 9.8 mg/dL (7-18); CALCIUM 8.6 mg/dL (8.5-10.1); CREATININE 0.8 mg/dL (0.55-1.3); MAGNESIUM 1.9 mg/dL (1.8-2.4); POTASSIUM 3.3 mmol/L (3.5-5.1)
[2019-02-11] MEDS ORDERED: cefTRIAXone SODIUM 1 GM VIAL ONE (09:55)
[2019-02-11] MEDS ORDERED: DEXTROSE 5%-WATER - 50 ML IVPB ONE (09:55)
[2019-02-11] MEDS: CEFTRIAXONE 1 GM in DEXTROSE 5%-WATER - 50 ML IVPB SCH (10:24)
[2019-02-11] MEDS: AZITHROMYCIN IVPB 500 MG/250 ML BAG IVPB SCH (10:25)
[2019-02-11] MEDS: CARVEDILOL 25 MG TABLET (FP) PO SCH ×2 (10:29→22:30)
[2019-02-11] MEDS: amLODIPine BESYLATE 10 MG TABLET (FP) PO SCH (10:29)
[2019-02-11] MEDS: LOSARTAN POTASSIUM 50 MG TABLET (FP) PO SCH (10:29)
[2019-02-11] MEDS: HEPARIN NA (PORCINE) 5,000 UNITS/ML 1ML VIAL SQ SCH ×2 (10:29→22:31)
[2019-02-11] MEDS: INSULIN (LEVEMIR) 100 UNITS/ML UNITS SQ SCH ×2 (10:29→22:25)
[2019-02-11] MEDS ORDERED: PT OWN MED DRAWER 7, Y5N ONE (10:52)
[2019-02-11] MEDS ORDERED: POTASSIUM CHLORIDE TABS 10 MEQ TABLET.ER (FP) PO ONE (12:13)
--- NOTE | 2019-02-11 12:13 | PN ---
Progress Note, Physician Chief Complaint: ASLEEP NO NEW EVENTS - Current Medication List Current Medications: Active Medications Acetaminophen (Tylenol -) 650 mg PO Q6H PRN PRN Reason: PAIN OR FEVER Last Admin: 02/10/19 06:07 Dose: 650 mg Amlodipine Besylate (Norvasc -) 10 mg PO DAILY [facility] Last Admin: 02/11/19 10:29 Dose: 10 mg Atorvastatin Calcium (Lipitor -) 20 mg PO HS [facility] Last Admin: 02/10/19 22:08 Dose: 20 mg Carvedilol (Coreg -) 25 mg PO BID [facility] Last Admin: 02/11/19 10:29 Dose: 25 mg Heparin Sodium (Porcine) (Heparin -) 5,000 unit SQ BID [facility] Last Admin: 02/11/19 10:29 Dose: 5,000 unit Azithromycin (Zithromax 500mg Ivpb (Pre-Docked)) 500 mg in 250 mls @ 250 mls/ hr IVPB DAILY [facility] Last Admin: 02/11/19 10:25 Dose: 250 mls/hr Ceftriaxone Sodium 1 gm/ (Dextrose) 50 mls @ 100 mls/hr IVPB DAILY [facility]; Protocol Last Admin: 02/11/19 10:24 Dose: 100 mls/hr Insulin Aspart (Novolog Vial Sliding Scale -) 1 vial SQ ACHS [facility]; Protocol Last Admin: 02/11/19 11:56 Dose: Not Given Insulin Detemir (Levemir Vial) 15 units SQ BID [facility] Last Admin: 02/11/19 10:29 Dose: 15 units Losartan Potassium (Cozaar -) 50 mg PO DAILY [facility] Last Admin: 02/11/19 10:29 Dose: 50 mg Non-Formulary Medication (Memantine Hcl [Memantine Hcl Er]) 28 mg PO DAILY [facility] - Objective Vital Signs: Vital Signs Temperature 98.4 F 02/11/19 02:00 Pulse Rate 53 L 02/11/19 10:00 Respiratory Rate 20 02/11/19 10:00 Blood Pressure 125/65 02/11/19 10:00 O2 Sat by Pulse Oximetry (%) 92 L 02/11/19 09:00 Constitutional: Yes: No Distress Cardiovascular: Yes: Regular Rate and Rhythm Respiratory: Yes: Cough, On Nasal O2 Gastrointestinal: Yes: Soft Musculoskeletal: Yes: Muscle Weakness Integumentary: Yes: WNL Neurological: Yes: Confusion, Pre-Existing Deficit Psychiatric: Yes: Other Labs: CBC, BMP 02/11/19 05:35 02/11/19 05:35 INR, PTT INR 1.12 (0.83-1.09) H 02/07/19 23:35 Problem List - Problems (1) Diabetes Code(s): E11.9 - TYPE 2 DIABETES MELLITUS WITHOUT COMPLICATIONS Qualifiers: Diabetes mellitus type: type 2 Diabetes mellitus mcfp insulin use: without mcfp use Diabetes mellitus complication status: with diabetic arthropathy (2) HTN (hypertension) Code(s): I10 - ESSENTIAL (PRIMARY) HYPERTENSION Qualifiers: Hypertension type: unspecified Qualified Code(s): I10 - Essential (primary ) hypertension (3) Hyperglycemia Code(s): R73.9 - HYPERGLYCEMIA, UNSPECIFIED (4) Pneumonia Code(s): J18.9 - PNEUMONIA, UNSPECIFIED ORGANISM Qualifiers: Pneumonia type: due to unspecified organism Laterality: unspecified laterality Lung location: unspecified part of lung Qualified Code(s): J18.9 - Pneumonia, unspecified organism (5) Prerenal azotemia Code(s): R79.89 - OTHER SPECIFIED ABNORMAL FINDINGS OF BLOOD CHEMISTRY (6) Alzheimers disease Code(s): G30.9 - ALZHEIMER'S DISEASE, UNSPECIFIED; F02.80 - DEMENTIA IN OTH DISEASES CLASSD ELSWHR W/O BEHAVRL DISTURB Assessment/Plan IV ABX CONTINUE CEFTRIAXONE/AZITHROMYCIN NEBS PULM/ENDOCRINE EVAL MONITOR BGM SSI/DIETARY EVAL FOR NUTRITION MAY NEED SWALLOW EVAL MONITOR FOR DYSPHAGIA OOB TO CHAIR ID F/U DVT PROPHYLAXIS
[2019-02-11] MEDS: ATORVASTATIN CA 20 MG TABLET (FP) PO SCH (22:30)
[2019-02-12] MEDS: INSULIN SLIDING SCALE (NOVOLOG) 1 VIAL SQ SCH ×4 (06:17→22:44)
[2019-02-12] MEDS ORDERED: DEXTROSE 50%-WATER - 25 GM/50 ML VIAL IVPUSH ONE (06:51)
[2019-02-12] MEDS ORDERED: DEXTROSE 50%-WATER 25 GM/50 ML DISP.SYRIN ONE (06:52)
[2019-02-12] MEDS ORDERED: DEXTROSE 5%-WATER - 50 ML IVPB ONE (08:58)
[2019-02-12] MEDS ORDERED: cefTRIAXone SODIUM 1 GM VIAL ONE (08:58)
[2019-02-12] MEDS: AZITHROMYCIN IVPB 500 MG/250 ML BAG IVPB SCH (09:19)
[2019-02-12] MEDS: LOSARTAN POTASSIUM 50 MG TABLET (FP) PO SCH (09:20)
[2019-02-12] MEDS: HEPARIN NA (PORCINE) 5,000 UNITS/ML 1ML VIAL SQ SCH ×2 (09:20→22:43)
[2019-02-12] MEDS: POTASSIUM CHLORIDE TABS 10 MEQ TABLET.ER (FP) PO SCH (09:20)
[2019-02-12] MEDS: CARVEDILOL 25 MG TABLET (FP) PO SCH ×2 (09:20→22:43)
[2019-02-12] MEDS: amLODIPine BESYLATE 10 MG TABLET (FP) PO SCH (09:20)
[2019-02-12] MEDS: CEFTRIAXONE 1 GM in DEXTROSE 5%-WATER - 50 ML IVPB SCH (09:20)
[2019-02-12] MEDS: INSULIN (LEVEMIR) 100 UNITS/ML UNITS SQ SCH ×2 (09:22→22:50)
--- NOTE | 2019-02-12 11:16 | PN ---
Progress Note (short form) - Note Progress Note: PULMONARY CONSULTATION DICTATED 02/12/19 IMP BILATERAL INFILTRATES C/W PNEUMONIA HTN HYPERCAPNEA DM ALZHEIMERS DEMENTIA GERD + TROPONIN PLAN ABX PER ID CULTURES INHALED BRONCHODILATORS O2 F/U CHEST X-RAYS F/U CHEST CT 6 WKS TO CONFIRM RESOLUTION OF INFILTRATES DR ESCOBAR Problem List - Problems (1) Cough Code(s): R05 - COUGH (2) Diabetes Code(s): E11.9 - TYPE 2 DIABETES MELLITUS WITHOUT COMPLICATIONS Qualifiers: Diabetes mellitus type: type 2 Diabetes mellitus labor service representative insulin use: without labor service representative use Diabetes mellitus complication status: with diabetic arthropathy (3) Elevated troponin Code(s): R79.89 - OTHER SPECIFIED ABNORMAL FINDINGS OF BLOOD CHEMISTRY (4) HTN (hypertension) Code(s): I10 - ESSENTIAL (PRIMARY) HYPERTENSION Qualifiers: Hypertension type: unspecified Qualified Code(s): I10 - Essential (primary ) hypertension (5) Pneumonia Code(s): J18.9 - PNEUMONIA, UNSPECIFIED ORGANISM Qualifiers: Pneumonia type: due to unspecified organism Laterality: unspecified laterality Lung location: unspecified part of lung Qualified Code(s): J18.9 - Pneumonia, unspecified organism (6) ANTONIO (acute kidney injury) Code(s): N17.9 - ACUTE KIDNEY FAILURE, UNSPECIFIED (7) Alzheimers disease Code(s): G30.9 - ALZHEIMER'S DISEASE, UNSPECIFIED; F02.80 - DEMENTIA IN OTH DISEASES CLASSD ELSWHR W/O BEHAVRL DISTURB
[2019-02-12 12:02] VITALS: BMI 21.9
--- NOTE | 2019-02-12 12:07 | CONS ---
DATE OF CONSULTATION: 02/12/2019 REFERRING PHYSICIAN: Herrera Huang MD History is obtained from medical records. Patient is a poor historian secondary to dementia. The patient is a 68-year-old [place] male with a past medical history of Alzheimer dementia, hypertension, hyperlipidemia, GERD, diabetes, admitted to [facility] with complaint of a few days history of increasing shortness of breath, cough, chest congestion, and fever. The patient has recently returned from [facility] on day of admission. Apparently, while in [facility], he started developing cough and chest congestion. Apparently, in [facility], he was taking medication, possibly antibiotic, without any improvement. He presented to [facility] ER with the above. In the ER, he was noted to have bilateral pneumonia on CAT scan. He was evaluated by Dr. Gamino, from Infectious Disease, and placed on broad-spectrum antibiotics. No further history is available at this time. Past medical history, again, includes hypertension, diabetes, Alzheimer dementia , GERD. SOCIAL HISTORY: Apparently a history of tobacco use. Current medications include memantine, Aricept, Tylenol, Cozaar, Zithromax, ceftriaxone, heparin, Coreg, Norvasc, Lipitor, NovoLog, Levemir, and K-Dur. REVIEW OF SYSTEMS: Unable to obtain. PHYSICAL EXAMINATION: General: The patient is a thin black male, awake, alert, confused, in no acute distress. Vital Signs: He is afebrile. Blood pressure is 109/87. Respiratory rate is 20. O2 saturation is 95% on room air. HEENT: Normocephalic, atraumatic. Neck: Supple. Heart: Regular, S1, S2. Chest: Diminished breath sounds bilaterally, a few crackles bilaterally. Abdomen: Soft. Bowel sounds positive. Extremities: No cyanosis, edema. LABORATORY DATA: Venous blood gas 7.42, pCO2 of 51, a pO2 less than 49, bicarbonate of 33, and a saturation of 41. WBC is 4, hemoglobin 12.3, hematocrit 36.2, with a platelet count of 303,000. Troponin initially elevated, 0.11; followup, 0.03. Potassium 3.3, CO2 30, BUN 9, creatinine 0.8. Chest CT: Bilateral patchy consolidation, bilateral patchy infiltrates, questionable nodular densities. IMPRESSION: 1. Bilateral infiltrates consistent with pneumonia. 2. Hypertension. 3. Hypercapnia. 4. Diabetes. 5. Alzheimer dementia. 6. Gastroesophageal reflux disease. 7. Positive troponins. PLAN: Antibiotics, as per Infectious Disease. Obtain cultures. Inhaled bronchodilators supplemental O2. Followup chest x-rays. Also followup chest CT in 6 to 8 weeks to confirm resolution of infiltrates. JACOB ESCOBAR M.D. [id number] MTDD
--- NOTE | 2019-02-12 12:28 | CONSULT ---
Admitting History and Physical - Primary Care Physician PCP: Herrera Huang - Admission History of Present Illness: 68M w/ a history of HTN and a questionable history of DM who presents for evaluation of approximately one week of productive cough and fever. The pt states he returned from [facility] today and came directly to the hospital. He has tried 'cough and fever' medicine in [facility] w/ little relief PNA r/o TB- w/u in progress pulm IMP BILATERAL INFILTRATES C/W PNEUMONIA HTN HYPERCAPNEA DM ALZHEIMERS DEMENTIA GERD + TROPONIN Selected Entries 02/11/19 02/11/19 02/11/19 02:00 11:32 14:15 Breakfast 75% Lunch Supper Temperature 98.4 F 98 F 02/11/19 02/11/19 02/11/19 15:33 17:00 19:44 Breakfast Lunch 75% Supper 75% Temperature 98.1 F 02/11/19 02/12/19 20:13 01:00 Breakfast Lunch Supper Temperature 98.3 F 98.2 F Laboratory Tests 02/11/19 05:35 WBC 4.0 History Source: Medical Record Limitations to Obtaining History: Clinical Condition - Past Medical History Cardiovascular: Yes: HTN, Hyperlipdemia Gastrointestinal: Yes: GERD Endocrine: Yes: Diabetes Mellitus - Past Surgical History Past Surgical History: Yes: Hernia Repair - Smoking History Smoking history: Former smoker Have you smoked in the past 12 months: Yes Aproximately how many cigarettes per day: 10 - Alcohol/Substance Use Hx Alcohol Use: No History of Substance Use: reports: None - Social History ADL: Independent History of Recent Travel: No History - Admission Reason For Visit: ELEVATED TROPONIN LEVEL,HYPERTENSION,PNEUMONIA - Diagnostics X-ray: Report Reviewed CT Scan: Report Reviewed - General Mental Status: Alert and Oriented, Awake and Alert, Able to Follow Commands, Vague Attention: Intact Ability to Follow Directions: Good Head/Neck Control: WFL - Hearing Hearing: Normal Speech Evaluation - Communication Primary Language: [place] (creole ) Communication: Yes: Simple Responses (vague, repetitive,) - Speech Production Intelligibility: Yes: WNL - Speech Characteristics Voice Loudness: Normal Voice Pitch: Yes: Normal Voice Phonatory-based Quality: Yes: Normal Speech Pattern: Normal Speech Clarity: < 100% Nasal Resonance: Normal Articulation: Yes: Precise - Language/Auditory Comprehension Follows: Yes: 1 Stage Simple Commands - Language/Verbal Expression Able to Communicate Wants and Needs: Yes: Mildly Impaired - Swallow Evaluation/Bedside Assessment Current Nutritional Intake: Regular, Thin Liquids Oral Secretions: Yes: WFL Dentition: Yes: Edentulous Facial Symmetry at Rest: Symmetrical Facial Symmetry on Retraction: Symmetrical Against Resistance Opening: Normal Against Resistance Closing: Normal Pucker Lips: Normal Smile: Normal Lingual Movement: Normal, Symmetric Lingual Speed of Movement: Normal Lingual Movement Strgth Against Opposition: Normal Lingual Movement Characteristics: Normal Velopharyngeal Movement: Normal Laryngeal Elevation: WFL Laryngeal Movement: Able to Palpate Rate of Intake: WFL Bolus Size: WFL Labial Seal: WFL Chewing: WFL (edentulous but efficient) Oral Prep Time: WFL A-P Transit: WFL Timing of Swallow: WFL Coughing/Throat Clear: No Change in Voice: No Recommendations - Speech Evaluation, Impression/Plan Impression: Verbal, vague? Speech production precise, euphonic. (-) 3 oz water test - Dysphagia Impressions/Plan Swallowing Skills: WFL Dysphagia Impressions: No Impairment *Silent aspiration: cannot be R/O at bedside - Recommendations Diet Consistency: Regular Medication Administration: Whole with water Liquids: Thin Liquids
--- NOTE | 2019-02-12 13:15 | PN ---
Progress Note (short form) - Note Progress Note: less cough no fever Vital Signs Period Temp Pulse Resp BP Sys/Nance Pulse Ox Last 24 Hr 98 F-98.3 F 57-77 20-20 109-143/53-87 95-95 cor-rrr lungs scattered rhonchi abd soft,nt ext no edema CBC, BMP 02/11/19 05:35 02/12/19 06:10 Microbiology 02/12/19 00:00 Sputum - Expectorated AFB Smear Concentration - Preliminary 02/12/19 00:00 Sputum - Expectorated Mycobacterial Culture - Preliminary 02/09/19 11:03 Sputum - Expectorated AFB Smear Concentration - Preliminary 02/09/19 11:03 Sputum - Expectorated Mycobacterial Culture - Preliminary 02/07/19 23:48 Blood - Peripheral Venous Blood Culture - Preliminary NO GROWTH OBTAINED AFTER 96 HOURS, INCUBATION TO CONTINUE FOR 1 DAYS. 02/07/19 23:35 Blood - Peripheral Venous Blood Culture - Preliminary NO GROWTH OBTAINED AFTER 96 HOURS, INCUBATION TO CONTINUE FOR 1 DAYS. 02/08/19 16:40 Sputum - Expectorated AFB Smear Concentration - Final 02/08/19 16:40 Sputum - Expectorated Mycobacterial Culture - Preliminary 02/08/19 13:00 Sputum - Expectorated Gram Stain - Final 02/08/19 13:00 Sputum - Expectorated Sputum Culture - Final NORMAL RESPIRATORY BELIA 02/08/19 03:10 Urine - Urine Clean Catch Urine Culture - Final NO GROWTH OBTAINED a/p pneumonia r/o TB afb isolation sputum for culture sputum for afb times 3- one negative, two pending continue rocephin/zithromax day #5 hiv negative dm -poorly controlled Laboratory Tests 02/08/19 06:00 Hemoglobin A1c % 14.3 H Problem List - Problems (1) Pneumonia Code(s): J18.9 - PNEUMONIA, UNSPECIFIED ORGANISM Qualifiers: Pneumonia type: due to unspecified organism Laterality: unspecified laterality Lung location: unspecified part of lung Qualified Code(s): J18.9 - Pneumonia, unspecified organism (2) Diabetes Code(s): E11.9 - TYPE 2 DIABETES MELLITUS WITHOUT COMPLICATIONS Qualifiers: Diabetes mellitus type: type 2 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
--- NOTE | 2019-02-12 13:30 | PN ---
Progress Note, Physician Chief Complaint: patient seen and examined says he is better - Current Medication List Current Medications: Active Medications Acetaminophen (Tylenol -) 650 mg PO Q6H PRN PRN Reason: PAIN OR FEVER Last Admin: 02/10/19 06:07 Dose: 650 mg Amlodipine Besylate (Norvasc -) 10 mg PO DAILY [facility] Last Admin: 02/12/19 09:20 Dose: 10 mg Atorvastatin Calcium (Lipitor -) 20 mg PO HS [facility] Last Admin: 02/11/19 22:30 Dose: 20 mg Carvedilol (Coreg -) 25 mg PO BID [facility] Last Admin: 02/12/19 09:20 Dose: 25 mg Heparin Sodium (Porcine) (Heparin -) 5,000 unit SQ BID [facility] Last Admin: 02/12/19 09:20 Dose: 5,000 unit Azithromycin (Zithromax 500mg Ivpb (Pre-Docked)) 500 mg in 250 mls @ 250 mls/ hr IVPB DAILY [facility] Last Admin: 02/12/19 09:19 Dose: 250 mls/hr Ceftriaxone Sodium 1 gm/ (Dextrose) 50 mls @ 100 mls/hr IVPB DAILY [facility]; Protocol Last Admin: 02/12/19 09:20 Dose: 100 mls/hr Insulin Aspart (Novolog Vial Sliding Scale -) 1 vial SQ ACHS [facility]; Protocol Last Admin: 02/12/19 06:17 Dose: Not Given Insulin Detemir (Levemir Vial) 15 units SQ BID [facility] Last Admin: 02/12/19 09:22 Dose: Not Given Losartan Potassium (Cozaar -) 50 mg PO DAILY [facility] Last Admin: 02/12/19 09:20 Dose: 50 mg Non-Formulary Medication (Memantine Hcl [Memantine Hcl Er]) 28 mg PO DAILY [facility] Potassium Chloride (K-Dur -) 10 meq PO DAILY [facility] Last Admin: 02/12/19 09:20 Dose: 10 meq - Objective Vital Signs: Vital Signs Temperature 98.2 F 02/12/19 01:00 Pulse Rate 57 L 02/12/19 05:00 Respiratory Rate 20 02/12/19 07:48 Blood Pressure 109/87 02/12/19 05:00 O2 Sat by Pulse Oximetry (%) 95 02/12/19 07:48 Constitutional: Yes: Calm Cardiovascular: Yes: Regular Rate and Rhythm, S1, S2 Respiratory: Yes: CTA Bilaterally, Diminished (at bases) Gastrointestinal: Yes: Normal Bowel Sounds, Soft Edema: No Neurological: Yes: Alert, Oriented Labs: CBC, BMP 02/11/19 05:35 02/12/19 06:10 INR, PTT INR 1.12 (0.83-1.09) H 02/07/19 23:35 Problem List - Problems (1) Cough Assessment/Plan: airborne isolation rule out TB quantiferon ordered sputum AFB one negative two are pending iv abx Code(s): R05 - COUGH (2) Diabetes Assessment/Plan: levemir started uncontrolled Dm hgab1c in 14.5 endocrine consult Code(s): E11.9 - TYPE 2 DIABETES MELLITUS WITHOUT COMPLICATIONS Qualifiers: Diabetes mellitus type: type 2 Diabetes mellitus fpc insulin use: without fpc use Diabetes mellitus complication status: with diabetic arthropathy (3) Elevated troponin Assessment/Plan: trend troponin- now normal echo maybe stress related to pna Code(s): R79.89 - OTHER SPECIFIED ABNORMAL FINDINGS OF BLOOD CHEMISTRY (4) Pneumonia Assessment/Plan: iv zithromax and rocpehin rapid flu pending cultures pending sputum AFBsent - pending airborn iisolation Microbiology 02/07/19 23:48 Blood - Peripheral Venous Blood Culture - Preliminary NO GROWTH OBTAINED AFTER 24 HOURS, INCUBATION TO CONTINUE FOR 4 DAYS. 02/07/19 23:35 Blood - Peripheral Venous Blood Culture - Preliminary NO GROWTH OBTAINED AFTER 24 HOURS, INCUBATION TO CONTINUE FOR 4 DAYS. Code(s): J18.9 - PNEUMONIA, UNSPECIFIED ORGANISM Qualifiers: Pneumonia type: due to unspecified organism Laterality: unspecified laterality Lung location: unspecified part of lung Qualified Code(s): J18.9 - Pneumonia, unspecified organism (5) HTN (hypertension) Code(s): I10 - ESSENTIAL (PRIMARY) HYPERTENSION Qualifiers: Hypertension type: unspecified Qualified Code(s): I10 - Essential (primary ) hypertension
[2019-02-12] MEDS ORDERED: INSULIN (NOVOLOG) ASPART 100 UNITS/ML 10ML VIAL ONE (22:06)
[2019-02-12] MEDS: ATORVASTATIN CA 20 MG TABLET (FP) PO SCH (22:43)
[2019-02-13] MEDS ORDERED: INSULIN (NOVOLOG) ASPART 100 UNITS/ML 10ML VIAL ONE ×2 (06:22→21:48)
[2019-02-13] MEDS: INSULIN SLIDING SCALE (NOVOLOG) 1 VIAL SQ SCH ×4 (06:43→22:58)
[2019-02-13] MEDS ORDERED: cefTRIAXone SODIUM 1 GM VIAL ONE ×2 (08:26)
[2019-02-13] MEDS ORDERED: DEXTROSE 5%-WATER - 50 ML IVPB ONE ×2 (08:26)
[2019-02-13] MEDS: CEFTRIAXONE 1 GM in DEXTROSE 5%-WATER - 50 ML IVPB SCH (09:13)
[2019-02-13] MEDS: CARVEDILOL 25 MG TABLET (FP) PO SCH ×2 (09:29→22:57)
[2019-02-13] MEDS: amLODIPine BESYLATE 10 MG TABLET (FP) PO SCH (09:29)
[2019-02-13] MEDS: HEPARIN NA (PORCINE) 5,000 UNITS/ML 1ML VIAL SQ SCH ×2 (09:29→22:57)
[2019-02-13] MEDS: POTASSIUM CHLORIDE TABS 10 MEQ TABLET.ER (FP) PO SCH (09:29)
[2019-02-13] MEDS: LOSARTAN POTASSIUM 50 MG TABLET (FP) PO SCH (09:29)
[2019-02-13] MEDS: INSULIN (LEVEMIR) 100 UNITS/ML UNITS SQ SCH ×2 (09:30→23:04)
[2019-02-13] MEDS: AZITHROMYCIN IVPB 500 MG/250 ML BAG IVPB SCH (09:33)
--- NOTE | 2019-02-13 11:55 | PN ---
Progress Note, Physician History of Present Illness: PULMONARY ALERT,COMFORTABLE,-RESP DISTRESS. - Current Medication List Current Medications: Active Medications Acetaminophen (Tylenol -) 650 mg PO Q6H PRN PRN Reason: PAIN OR FEVER Last Admin: 02/10/19 06:07 Dose: 650 mg Amlodipine Besylate (Norvasc -) 10 mg PO DAILY [facility] Last Admin: 02/13/19 09:29 Dose: 10 mg Atorvastatin Calcium (Lipitor -) 20 mg PO HS [facility] Last Admin: 02/12/19 22:43 Dose: 20 mg Carvedilol (Coreg -) 25 mg PO BID [facility] Last Admin: 02/13/19 09:29 Dose: 25 mg Heparin Sodium (Porcine) (Heparin -) 5,000 unit SQ BID [facility] Last Admin: 02/13/19 09:29 Dose: 5,000 unit Azithromycin (Zithromax 500mg Ivpb (Pre-Docked)) 500 mg in 250 mls @ 250 mls/ hr IVPB DAILY [facility] Last Admin: 02/13/19 09:33 Dose: 250 mls/hr Ceftriaxone Sodium 1 gm/ (Dextrose) 50 mls @ 100 mls/hr IVPB DAILY [facility]; Protocol Last Admin: 02/13/19 09:13 Dose: 100 mls/hr Insulin Aspart (Novolog Vial Sliding Scale -) 1 vial SQ ACHS [facility]; Protocol Last Admin: 02/13/19 06:43 Dose: 4 units Insulin Detemir (Levemir Vial) 15 units SQ BID [facility] Last Admin: 02/13/19 09:30 Dose: 15 units Losartan Potassium (Cozaar -) 50 mg PO DAILY [facility] Last Admin: 02/13/19 09:29 Dose: 50 mg Non-Formulary Medication (Memantine Hcl [Memantine Hcl Er]) 28 mg PO DAILY [facility] Potassium Chloride (K-Dur -) 10 meq PO DAILY [facility] Last Admin: 02/13/19 09:29 Dose: 10 meq - Objective Vital Signs: Vital Signs Temperature 98.0 F 02/13/19 06:00 Pulse Rate 60 02/13/19 06:00 Respiratory Rate 20 02/13/19 06:00 Blood Pressure 141/63 02/13/19 06:00 O2 Sat by Pulse Oximetry (%) 96 02/12/19 21:00 Constitutional: Yes: Calm, Thin Eyes: Yes: WNL HENT: Yes: WNL Neck: Yes: WNL Cardiovascular: Yes: Regular Rate and Rhythm, S1, S2 Respiratory: Yes: Rales (FEW SCATTERED CRACKLES) Gastrointestinal: Yes: Normal Bowel Sounds, Soft Extremities: Yes: WNL Edema: No Labs: Problem List - Problems (1) Cough Code(s): R05 - COUGH (2) Diabetes Code(s): E11.9 - TYPE 2 DIABETES MELLITUS WITHOUT COMPLICATIONS Qualifiers: Diabetes mellitus type: type 2 Diabetes mellitus jail insulin use: without jail use Diabetes mellitus complication status: with diabetic arthropathy (3) Elevated troponin Code(s): R79.89 - OTHER SPECIFIED ABNORMAL FINDINGS OF BLOOD CHEMISTRY (4) HTN (hypertension) Code(s): I10 - ESSENTIAL (PRIMARY) HYPERTENSION Qualifiers: Hypertension type: unspecified Qualified Code(s): I10 - Essential (primary ) hypertension (5) Pneumonia Code(s): J18.9 - PNEUMONIA, UNSPECIFIED ORGANISM Qualifiers: Pneumonia type: due to unspecified organism Laterality: unspecified laterality Lung location: unspecified part of lung Qualified Code(s): J18.9 - Pneumonia, unspecified organism (6) ANTONIO (acute kidney injury) Code(s): N17.9 - ACUTE KIDNEY FAILURE, UNSPECIFIED (7) Alzheimers disease Code(s): G30.9 - ALZHEIMER'S DISEASE, UNSPECIFIED; F02.80 - DEMENTIA IN OTH DISEASES CLASSD ELSWHR W/O BEHAVRL DISTURB Assessment/Plan IMP BILATERAL INFILTRATES C/W PNEUMONIA HTN HYPERCAPNEA DM ALZHEIMERS DEMENTIA GERD + TROPONIN PLAN ABX PER ID INHALED BRONCHODILATORS O2 F/U CHEST X-RAYS F/U CHEST CT 6 WKS TO CONFIRM RESOLUTION OF INFILTRATES DR ESCOBAR Problem List - Problems (1) Cough Code(s): R05 - COUGH (2) Diabetes Code(s): E11.9 - TYPE 2 DIABETES MELLITUS WITHOUT COMPLICATIONS Qualifiers: Diabetes mellitus type: type 2 Diabetes mellitus jail insulin use: without long term care administrator use Diabetes mellitus complication status: with diabetic arthropathy (3) Elevated troponin Code(s): R79.89 - OTHER SPECIFIED ABNORMAL FINDINGS OF BLOOD CHEMISTRY (4) HTN (hypertension) Code(s): I10 - ESSENTIAL (PRIMARY) HYPERTENSION Qualifiers: Hypertension type: unspecified Qualified Code(s): I10 - Essential (primary ) hypertension (5) Pneumonia Code(s): J18.9 - PNEUMONIA, UNSPECIFIED ORGANISM Qualifiers: Pneumonia type: due to unspecified organism Laterality: unspecified laterality Lung location: unspecified part of lung Qualified Code(s): J18.9 - Pneumonia, unspecified organism (6) ANTONIO (acute kidney injury) Code(s): N17.9 - ACUTE KIDNEY FAILURE, UNSPECIFIED (7) Alzheimers disease Code(s): G30.9 - ALZHEIMER'S DISEASE, UNSPECIFIED; F02.80 - DEMENTIA IN OTH DISEASES CLASSD ELSWHR W/O BEHAVRL DISTURB
--- NOTE | 2019-02-13 12:04 | PN ---
Progress Note, Physician Chief Complaint: Cough History of Present Illness: NAD feeling better Quantiferon TB gold shows latent tb AFB x 3 negative Seen by ID - Current Medication List Current Medications: Active Medications Acetaminophen (Tylenol -) 650 mg PO Q6H PRN PRN Reason: PAIN OR FEVER Last Admin: 02/10/19 06:07 Dose: 650 mg Amlodipine Besylate (Norvasc -) 10 mg PO DAILY [facility] Last Admin: 02/13/19 09:29 Dose: 10 mg Atorvastatin Calcium (Lipitor -) 20 mg PO HS [facility] Last Admin: 02/12/19 22:43 Dose: 20 mg Carvedilol (Coreg -) 25 mg PO BID [facility] Last Admin: 02/13/19 09:29 Dose: 25 mg Heparin Sodium (Porcine) (Heparin -) 5,000 unit SQ BID [facility] Last Admin: 02/13/19 09:29 Dose: 5,000 unit Azithromycin (Zithromax 500mg Ivpb (Pre-Docked)) 500 mg in 250 mls @ 250 mls/ hr IVPB DAILY [facility] Last Admin: 02/13/19 09:33 Dose: 250 mls/hr Ceftriaxone Sodium 1 gm/ (Dextrose) 50 mls @ 100 mls/hr IVPB DAILY [facility]; Protocol Last Admin: 02/13/19 09:13 Dose: 100 mls/hr Insulin Aspart (Novolog Vial Sliding Scale -) 1 vial SQ ACHS [facility]; Protocol Last Admin: 02/13/19 11:53 Dose: 8 units Insulin Detemir (Levemir Vial) 15 units SQ BID [facility] Last Admin: 02/13/19 09:30 Dose: 15 units Losartan Potassium (Cozaar -) 50 mg PO DAILY [facility] Last Admin: 02/13/19 09:29 Dose: 50 mg Memantine (Namenda -) 10 mg PO BID [facility] Potassium Chloride (K-Dur -) 10 meq PO DAILY [facility] Last Admin: 02/13/19 09:29 Dose: 10 meq - Objective Vital Signs: Vital Signs Temperature 98.0 F 02/13/19 06:00 Pulse Rate 60 02/13/19 06:00 Respiratory Rate 20 02/13/19 06:00 Blood Pressure 141/63 02/13/19 06:00 O2 Sat by Pulse Oximetry (%) 96 02/12/19 21:00 Constitutional: Yes: Well Nourished, No Distress, Calm Cardiovascular: Yes: Regular Rate and Rhythm Respiratory: Yes: Regular Gastrointestinal: Yes: WNL Genitourinary: Yes: WNL Musculoskeletal: Yes: WNL Extremities: Yes: WNL Edema: No Peripheral Pulses WNL: Yes Neurological: Yes: Alert, Oriented Psychiatric: Yes: Alert, Oriented Labs: CBC, BMP 02/11/19 05:35 02/12/19 06:10 INR, PTT INR 1.12 (0.83-1.09) H 02/07/19 23:35 Problem List - Problems (1) Cough Assessment/Plan: -ID on board -IV abx -CT chest reviewed -Pulmonary on board -Bronchodilators -antitussives -AFB x Problems reviewed: Yes Code(s): R05 - COUGH (2) Diabetes Assessment/Plan: -A1c at 14.3 -Levemir 15 U BID -ISS -BGM AC HS -Diabetic diet -Endocrine consult Problems reviewed: Yes Code(s): E11.9 - TYPE 2 DIABETES MELLITUS WITHOUT COMPLICATIONS Qualifiers: Diabetes mellitus type: type 2 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
--- NOTE | 2019-02-13 12:25 | PN ---
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
[2019-02-13] MEDS: MEMANTINE HCL 10 MG TABLET (FP) PO SCH ×2 (12:37→22:57)
[2019-02-13 12:57] LABS: BASO % 2.7 % (0-2.0); HEMATOCRIT 40.2 % (35.4-49); LYMPH % 31.9 % (8-40); MCH 27.9 pg (25.7-33.7); MCHC 32.4 g/dl (32.0-35.9); MEAN CELL VOLUME 86.2 fl (80-96); MEAN PLT VOLUME 9.4 fl (7.5-11.1); MONO % 10.4 % (3.8-10.2); PLATELET COUNT 484 K/MM3 (134-434); RBC 4.67 M/mm3 (4.00-5.60); RDW 14.4 % (11.9-15.9); WHITE BLOOD COUNT 4.6 K/mm3 (4.0-10.0)
[2019-02-13 13:54] LABS: ALBUMIN 2.7 g/dl (3.4-5.0); BILIRUBIN,TOTAL 0.4 mg/dL (0.2-1); BLOOD UREA NITROGEN 14.2 mg/dL (7-18); CALCIUM 8.9 mg/dL (8.5-10.1); TOT PROT 6.6 g/dl (6.4-8.2)
[2019-02-13] MEDS: ATORVASTATIN CA 20 MG TABLET (FP) PO SCH (22:57)
[2019-02-14] MEDS: INSULIN SLIDING SCALE (NOVOLOG) 1 VIAL SQ SCH ×2 (06:00→12:31)
[2019-02-14 07:43] VITALS: TEMP 98.3
[2019-02-14] MEDS ORDERED: DEXTROSE 5%-WATER - 50 ML IVPB ONE (09:30)
[2019-02-14] MEDS ORDERED: cefTRIAXone SODIUM 1 GM VIAL ONE (09:30)
[2019-02-14] MEDS: LOSARTAN POTASSIUM 50 MG TABLET (FP) PO SCH (09:42)
[2019-02-14] MEDS: HEPARIN NA (PORCINE) 5,000 UNITS/ML 1ML VIAL SQ SCH (09:42)
[2019-02-14] MEDS: MEMANTINE HCL 10 MG TABLET (FP) PO SCH (09:42)
[2019-02-14] MEDS: POTASSIUM CHLORIDE TABS 10 MEQ TABLET.ER (FP) PO SCH (09:42)
[2019-02-14] MEDS: CARVEDILOL 25 MG TABLET (FP) PO SCH (09:42)
[2019-02-14] MEDS: amLODIPine BESYLATE 10 MG TABLET (FP) PO SCH (09:42)
[2019-02-14] MEDS: CEFTRIAXONE 1 GM in DEXTROSE 5%-WATER - 50 ML IVPB SCH (09:43)
[2019-02-14] MEDS: AZITHROMYCIN IVPB 500 MG/250 ML BAG IVPB SCH (09:43)
--- NOTE | 2019-02-14 10:14 | PN ---
Progress Note (short form) - Note Progress Note: doing well sputum afb negative times 3, pcr negative times 2 sputum is clear now Vital Signs Period Temp Pulse Resp BP Sys/Nance Pulse Ox Last 24 Hr 98.3 F-98.7 F 57-69 20-20 117-152/55-74 96-97 cor-rrr llungs clear abd soft,nt ext no edema CBC, BMP 02/13/19 12:36 02/13/19 12:36 Microbiology 02/09/19 11:03 Sputum - Expectorated AFB Smear Concentration - Preliminary 02/09/19 11:03 Sputum - Expectorated Mycobacterial Culture - Preliminary 02/12/19 00:00 Sputum - Expectorated AFB Smear Concentration - Final 02/12/19 00:00 Sputum - Expectorated Mycobacterial Culture - Preliminary 02/07/19 23:48 Blood - Peripheral Venous Blood Culture - Final NO GROWTH AFTER 5 DAYS INCUBATION 02/07/19 23:35 Blood - Peripheral Venous Blood Culture - Final NO GROWTH AFTER 5 DAYS INCUBATION 02/08/19 16:40 Sputum - Expectorated AFB Smear Concentration - Final 02/08/19 16:40 Sputum - Expectorated Mycobacterial Culture - Preliminary 02/08/19 13:00 Sputum - Expectorated Gram Stain - Final 02/08/19 13:00 Sputum - Expectorated Sputum Culture - Final NORMAL RESPIRATORY BELIA 02/08/19 03:10 Urine - Urine Clean Catch Urine Culture - Final NO GROWTH OBTAINED HIV negative a/p pneumonia- CAP doing well day #7 rocephin/zithromax can d/c antibioitics +quantiferon- should f/u with PMD- unclear if he has been prophylaxed in the past would wait for sputum afb cultures to be finalized prior to starting prophylaxis can f/u with PMD-Dr Tobar Problem List - Problems (1) Pneumonia Code(s): J18.9 - PNEUMONIA, UNSPECIFIED ORGANISM Qualifiers: Pneumonia type: due to unspecified organism Laterality: unspecified laterality Lung location: unspecified part of lung Qualified Code(s): J18.9 - Pneumonia, unspecified organism (2) Diabetes Code(s): E11.9 - TYPE 2 DIABETES MELLITUS WITHOUT COMPLICATIONS Qualifiers: Diabetes mellitus type: type 2 Diabetes mellitus halfway insulin use: without halfway use Diabetes mellitus complication status: with diabetic arthropathy (3) HTN (hypertension) Code(s): I10 - ESSENTIAL (PRIMARY) HYPERTENSION Qualifiers: Hypertension type: unspecified Qualified Code(s): I10 - Essential (primary ) hypertension
--- NOTE | 2019-02-14 10:49 | PN ---
Progress Note, Physician Chief Complaint: Cough History of Present Illness: NAD feeling better Quantiferon TB gold pending AFB x 3 negative Seen by ID - Current Medication List Current Medications: Active Medications Acetaminophen (Tylenol -) 650 mg PO Q6H PRN PRN Reason: PAIN OR FEVER Last Admin: 02/10/19 06:07 Dose: 650 mg Amlodipine Besylate (Norvasc -) 10 mg PO DAILY [facility] Last Admin: 02/14/19 09:42 Dose: 10 mg Atorvastatin Calcium (Lipitor -) 20 mg PO HS [facility] Last Admin: 02/13/19 22:57 Dose: 20 mg Carvedilol (Coreg -) 25 mg PO BID [facility] Last Admin: 02/14/19 09:42 Dose: 25 mg Heparin Sodium (Porcine) (Heparin -) 5,000 unit SQ BID [facility] Last Admin: 02/14/19 09:42 Dose: 5,000 unit Azithromycin (Zithromax 500mg Ivpb (Pre-Docked)) 500 mg in 250 mls @ 250 mls/ hr IVPB DAILY [facility] Last Admin: 02/14/19 09:43 Dose: 250 mls/hr Ceftriaxone Sodium 1 gm/ (Dextrose) 50 mls @ 100 mls/hr IVPB DAILY [facility]; Protocol Last Admin: 02/14/19 09:43 Dose: 100 mls/hr Insulin Aspart (Novolog Vial Sliding Scale -) 1 vial SQ ACHS [facility]; Protocol Last Admin: 02/14/19 06:00 Dose: 2 units Insulin Detemir (Levemir Vial) 15 units SQ BID [facility] Last Admin: 02/13/19 23:04 Dose: Not Given Losartan Potassium (Cozaar -) 50 mg PO DAILY [facility] Last Admin: 02/14/19 09:42 Dose: 50 mg Memantine (Namenda -) 10 mg PO BID [facility] Last Admin: 02/14/19 09:42 Dose: 10 mg Potassium Chloride (K-Dur -) 10 meq PO DAILY [facility] Last Admin: 02/14/19 09:42 Dose: 10 meq - Objective Vital Signs: Vital Signs Temperature 98.3 F 02/14/19 06:00 Pulse Rate 63 02/14/19 06:00 Respiratory Rate 20 02/14/19 06:00 Blood Pressure 152/74 02/14/19 06:00 O2 Sat by Pulse Oximetry (%) 97 02/13/19 21:00 Constitutional: Yes: Well Nourished, No Distress, Calm Cardiovascular: Yes: Regular Rate and Rhythm Respiratory: Yes: Regular, Wheezes (RLL) Gastrointestinal: Yes: WNL Genitourinary: Yes: WNL Musculoskeletal: Yes: WNL Extremities: Yes: WNL Edema: No Peripheral Pulses WNL: Yes Neurological: Yes: Alert, Oriented Psychiatric: Yes: Alert, Oriented Labs: CBC, BMP 02/13/19 12:36 02/13/19 12:36 INR, PTT INR 1.12 (0.83-1.09) H 02/07/19 23:35 Problem List - Problems (1) Cough Assessment/Plan: -ID on board -IV abx -CT chest reviewed -Pulmonary on board -Bronchodilators -antitussives -AFB x Problems reviewed: Yes Code(s): R05 - COUGH (2) Diabetes Assessment/Plan: -A1c at 14.3 -Levemir 15 U BID -ISS -BGM AC HS -Diabetic diet -Endocrine consult Problems reviewed: Yes Code(s): E11.9 - TYPE 2 DIABETES MELLITUS WITHOUT COMPLICATIONS Qualifiers: Diabetes mellitus type: type 2 Diabetes mellitus long-term insulin use: without terminal clerk use Diabetes mellitus complication status: with diabetic arthropathy (3) Latent tuberculosis Assessment/Plan: -Pt will f/u with ID o/p for treatment Problems reviewed: Yes Assessment/Plan see problem list
--- NOTE | 2019-02-14 12:00 | PN ---
Progress Note, Physician History of Present Illness: pulmonary alert,comfortable,-sob,less cough - Current Medication List Current Medications: Active Medications Acetaminophen (Tylenol -) 650 mg PO Q6H PRN PRN Reason: PAIN OR FEVER Last Admin: 02/10/19 06:07 Dose: 650 mg Amlodipine Besylate (Norvasc -) 10 mg PO DAILY ON LICENSE OF [facility] Last Admin: 02/14/19 09:42 Dose: 10 mg Atorvastatin Calcium (Lipitor -) 20 mg PO HS ON LICENSE OF [facility] Last Admin: 02/13/19 22:57 Dose: 20 mg Carvedilol (Coreg -) 25 mg PO BID ON LICENSE OF [facility] Last Admin: 02/14/19 09:42 Dose: 25 mg Heparin Sodium (Porcine) (Heparin -) 5,000 unit SQ BID ON LICENSE OF [facility] Last Admin: 02/14/19 09:42 Dose: 5,000 unit Azithromycin (Zithromax 500mg Ivpb (Pre-Docked)) 500 mg in 250 mls @ 250 mls/ hr IVPB DAILY ON LICENSE OF [facility] Last Admin: 02/14/19 09:43 Dose: 250 mls/hr Ceftriaxone Sodium 1 gm/ (Dextrose) 50 mls @ 100 mls/hr IVPB DAILY ON LICENSE OF [facility]; Protocol Last Admin: 02/14/19 09:43 Dose: 100 mls/hr Insulin Aspart (Novolog Vial Sliding Scale -) 1 vial SQ ACHS ON LICENSE OF [facility]; Protocol Last Admin: 02/14/19 06:00 Dose: 2 units Insulin Detemir (Levemir Vial) 15 units SQ BID ON LICENSE OF [facility] Last Admin: 02/13/19 23:04 Dose: Not Given Losartan Potassium (Cozaar -) 50 mg PO DAILY ON LICENSE OF [facility] Last Admin: 02/14/19 09:42 Dose: 50 mg Memantine (Namenda -) 10 mg PO BID ON LICENSE OF [facility] Last Admin: 02/14/19 09:42 Dose: 10 mg Potassium Chloride (K-Dur -) 10 meq PO DAILY ON LICENSE OF [facility] Last Admin: 02/14/19 09:42 Dose: 10 meq - Objective Vital Signs: Vital Signs Temperature 98.3 F 02/14/19 06:00 Pulse Rate 63 02/14/19 06:00 Respiratory Rate 20 02/14/19 06:00 Blood Pressure 152/74 02/14/19 06:00 O2 Sat by Pulse Oximetry (%) 97 02/13/19 21:00 Constitutional: Yes: Calm, Thin Eyes: Yes: WNL HENT: Yes: WNL Neck: Yes: WNL Cardiovascular: Yes: Regular Rate and Rhythm, S1, S2 Respiratory: Yes: Rhonchi (scattered brayan rhonchi) Gastrointestinal: Yes: Normal Bowel Sounds, Soft Extremities: Yes: WNL Edema: No Labs: CBC, BMP 02/13/19 12:36 Problem List - Problems (1) Cough Code(s): R05 - COUGH (2) Diabetes Code(s): E11.9 - TYPE 2 DIABETES MELLITUS WITHOUT COMPLICATIONS Qualifiers: Diabetes mellitus type: type 2 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: without group home use Diabetes mellitus complication status: with diabetic arthropathy (3) Elevated troponin Code(s): R79.89 - OTHER SPECIFIED ABNORMAL FINDINGS OF BLOOD CHEMISTRY (4) HTN (hypertension) Code(s): I10 - ESSENTIAL (PRIMARY) HYPERTENSION Qualifiers: Hypertension type: unspecified Qualified Code(s): I10 - Essential (primary ) hypertension (5) Pneumonia Code(s): J18.9 - PNEUMONIA, UNSPECIFIED ORGANISM Qualifiers: Pneumonia type: due to unspecified organism Laterality: unspecified laterality Lung location: unspecified part of lung Qualified Code(s): J18.9 - Pneumonia, unspecified organism (6) ANTONIO (acute kidney injury) Code(s): N17.9 - ACUTE KIDNEY FAILURE, UNSPECIFIED (7) Alzheimers disease Code(s): G30.9 - ALZHEIMER'S DISEASE, UNSPECIFIED; F02.80 - DEMENTIA IN OTH DISEASES CLASSD ELSWHR W/O BEHAVRL DISTURB Assessment/Plan IMP BILATERAL INFILTRATES C/W PNEUMONIA CLINICALLY IMPROVING HTN HYPERCAPNEA DM ALZHEIMERS DEMENTIA GERD + TROPONIN PLAN ABX PER ID INHALED BRONCHODILATORS O2 F/U CHEST X-RAYS F/U CHEST CT 6 WKS TO CONFIRM RESOLUTION OF INFILTRATES DR ESCOBAR Problem List - Problems (1) Cough Code(s): R05 - COUGH (2) Diabetes Code(s): E11.9 - TYPE 2 DIABETES MELLITUS WITHOUT COMPLICATIONS Qualifiers: Diabetes mellitus type: type 2 Diabetes mellitus group home insulin use: without group home use Diabetes mellitus complication status: with diabetic arthropathy (3) Elevated troponin Code(s): R79.89 - OTHER SPECIFIED ABNORMAL FINDINGS OF BLOOD CHEMISTRY (4) HTN (hypertension) Code(s): I10 - ESSENTIAL (PRIMARY) HYPERTENSION Qualifiers: Hypertension type: unspecified Qualified Code(s): I10 - Essential (primary ) hypertension (5) Pneumonia Code(s): J18.9 - PNEUMONIA, UNSPECIFIED ORGANISM Qualifiers: Pneumonia type: due to unspecified organism Laterality: unspecified laterality Lung location: unspecified part of lung Qualified Code(s): J18.9 - Pneumonia, unspecified organism (6) ANTONIO (acute kidney injury) Code(s): N17.9 - ACUTE KIDNEY FAILURE, UNSPECIFIED (7) Alzheimers disease Code(s): G30.9 - ALZHEIMER'S DISEASE, UNSPECIFIED; F02.80 - DEMENTIA IN OTH DISEASES CLASSD ELSWHR W/O BEHAVRL DISTURB
[2019-02-14 12:04] VITALS: BP 129/87; PULSE 61
[2019-02-14] MEDS: INSULIN (LEVEMIR) 100 UNITS/ML UNITS SQ SCH (12:46)
== END 2019-02-14 13:36 | disposition home or self-care (01) | DRG 194 ==
LOC: JER 21:47 → JERBED 02-08 01:23 → J4W 02-09 15:21
PROVIDERS: ADMIT Family Medicine; ATTEND Family Medicine
DX: J18.9 Pneumonia, unspecified organism (principal); N17.9 Acute kidney failure, unspecified; E46 Unspecified protein-calorie malnutrition; I10 Essential (primary) hypertension; E78.5 Hyperlipidemia, unspecified; G30.9 Alzheimer's disease, unspecified; F02.80 Dementia in other diseases classified elsewhere, unspecified severity, without behavioral disturbance, psychotic disturbance, mood disturbance, and anxiety; K21.9 Gastro-esophageal reflux disease without esophagitis; F17.210 Nicotine dependence, cigarettes, uncomplicated; R79.89 Other specified abnormal findings of blood chemistry; E11.65 Type 2 diabetes mellitus with hyperglycemia; E86.0 Dehydration; R06.89 Other abnormalities of breathing; E11.618 Type 2 diabetes mellitus with other diabetic arthropathy; Z22.7 Latent tuberculosis; Z68.22 Body mass index [BMI] 22.0-22.9, adult
CPT/HCPCS: 36415; 71045-TC-FY; 71250-TC; 80048; 80053; 80061; 81003; 82550; 82803; 82947; 82962; 83036; 83605; 83721; 83735; 84484; 85025; 85610; 85730; 86480; 87040; 87070; 87086; 87116; 87205; 87206; 87389; 87556; 87804; 93005; 93010; 97116-GP; 97161-GP; 99285-25; J0131; J1644; J7030

== ENCOUNTER 2021-11-15 14:31 | Inpatient (IN) | payer OTHER ==
[2021-11-15 16:24] LABS: BASO % 1.2 % (0-2.0); EOS % 0.4 % (0-4.5); HEMATOCRIT 44.4 % (35.4-49); HEMOGLOBIN 14.7 GM/dL (11.7-16.9); LYMPH % 14.6 % (8-40); MEAN CELL VOLUME 84.8 fl (80-96); MEAN PLT VOLUME 9.6 fl (7.5-11.1); MONO % 12.6 % (3.8-10.2); NEUT % 71.2 % (42.8-82.8); PLATELET COUNT 230 10^3/uL (134-434); RBC 5.23 M/mm3 (4.00-5.60); RDW 14.7 % (11.9-15.9); WHITE BLOOD COUNT 6.6 K/mm3 (4.0-10.0)
[2021-11-15] MEDS ORDERED: ACETAMINOPHEN 500 MG TABLET (FP) PO ONE (16:28)
[2021-11-15] MEDS ORDERED: SODIUM CHLORIDE 0.9% 500 ML INFUS.BAG IV ONE (16:28)
[2021-11-15] MEDS ORDERED: ACETAMINOPHEN 500 MG TABLET (FP) ONE (16:30)
[2021-11-15 16:43] LABS: CALCIUM 8.9 mg/dL (8.5-10.1)
[2021-11-15 16:44] LABS: ALBUMIN 3.9 g/dl (3.4-5.0); BLOOD UREA NITROGEN 18.6 mg/dL (7-18); MAGNESIUM 2.7 mg/dL (1.8-2.4)
[2021-11-15 16:47] LABS: PHOSPHOROUS 4.3 mg/dL (2.5-4.9)
[2021-11-15 16:49] LABS: BILIRUBIN,TOTAL 1.1 mg/dL (0.2-1); TOT PROT 7.7 g/dl (6.4-8.2)
[2021-11-15] MEDS ORDERED: DEXAMETHASONE SOD PHOSPHATE 4 MG/1 ML VIAL IVPUSH ONE (17:08)
[2021-11-15] MEDS ORDERED: DEXAMETHASONE SOD PHOSPHATE 10 MG/1 ML VIAL ONE (17:14)
[2021-11-15] MEDS ORDERED: diphenhydrAMINE HCL 25 MG CAPSULE (FP) PO ONE (17:54)
[2021-11-15] MEDS ORDERED: predniSONE 20 MG TABLET (UD) PO ONE (17:55)
[2021-11-15] MEDS ORDERED: FAMOTIDINE 20 MG TABLET PO SCH (18:00)
[2021-11-15] MEDS ORDERED: MELATONIN 5 MG TABLETS PO PRN (20:05)
[2021-11-15] MEDS ORDERED: ACETAMINOPHEN 325 MG TABLET (FP) PO PRN (20:05)
[2021-11-15] MEDS ORDERED: ALBUTEROL SO4 HFA INHALER IH PRN (20:25)
[2021-11-15] MEDS ORDERED: SODIUM CHLORIDE 1,000 ML IV SCH (20:30)
[2021-11-15 20:36] LABS: ERYTHROCYTE SEDIMENTATION RATE 3 mm/hr (0-20)
[2021-11-15] MEDS: LACTATED RINGERS SOLUTION 1,000 ML/1,000 ML INFUS.BAG IV SCH (21:07)
[2021-11-15] MEDS ORDERED: REMDESIVIR 200 MG in SODIUM CHLORIDE 250 ML IVPB ONE (21:30)
[2021-11-15] MEDS ORDERED: ATORVASTATIN CA 20 MG TABLET (FP) ONE (21:54)
[2021-11-15] MEDS ORDERED: GABAPENTIN 300 MG CAPSULE ONE (21:54)
[2021-11-15] MEDS: ATORVASTATIN CA 20 MG TABLET (FP) PO SCH (21:59)
[2021-11-15] MEDS: GABAPENTIN 300 MG CAPSULE PO SCH (21:59)
[2021-11-15] MEDS ORDERED: CARVEDILOL 25 MG TABLET (FP) PO SCH (22:00)
[2021-11-15] MEDS: INSULIN SLIDING SCALE (NOVOLOG) 1 VIAL SQ SCH (22:08)
[2021-11-15] MEDS: MEMANTINE HCL 10 MG TABLET (FP) PO SCH (22:34)
[2021-11-16] MEDS ORDERED: GABAPENTIN 300 MG CAPSULE ONE ×3 (05:58→21:30)
[2021-11-16] MEDS ORDERED: HEPARIN NA (PORCINE) 5,000 UNITS/ML 1ML VIAL ONE ×3 (05:58→21:30)
[2021-11-16] MEDS: HEPARIN NA (PORCINE) 5,000 UNITS/ML 1ML VIAL SQ SCH ×3 (06:11→22:25)
[2021-11-16] MEDS: GABAPENTIN 300 MG CAPSULE PO SCH ×3 (06:11→22:25)
[2021-11-16] MEDS: INSULIN SLIDING SCALE (NOVOLOG) 1 VIAL SQ SCH ×4 (08:34→23:57)
[2021-11-16] MEDS: EZETIMIBE 10 MG TABLET (FP) PO SCH (09:14)
[2021-11-16] MEDS: MEMANTINE HCL 10 MG TABLET (FP) PO SCH ×2 (09:14→22:25)
[2021-11-16] MEDS ORDERED: amLODIPine BESYLATE 5 MG TABLET (FP) PO SCH (10:00)
[2021-11-16] MEDS ORDERED: REMDESIVIR 100 MG in SODIUM CHLORIDE 270 ML IVPB ONE (10:00)
[2021-11-16] MEDS: TIOTROPIUM/OLODATEROL HCL (STIOLTO) 4 GM INHALER IH SCH (10:42)
[2021-11-16] MEDS: REMDESIVIR 100 MG in SODIUM CHLORIDE 250 ML IVPB SCH (10:43)
[2021-11-16 11:03] LABS: ALBUMIN 3.6 g/dl (3.4-5.0); BILIRUBIN,TOTAL 0.8 mg/dL (0.2-1); BLOOD UREA NITROGEN 26.5 mg/dL (7-18); CALCIUM 8.9 mg/dL (8.5-10.1); CREATININE 1.4 mg/dL (0.55-1.3); MAGNESIUM 2.5 mg/dL (1.8-2.4); PHOSPHOROUS 3.6 mg/dL (2.5-4.9); TOT PROT 7.5 g/dl (6.4-8.2)
[2021-11-16 12:35] LABS: BASO % 0.3 % (0-2.0); HEMATOCRIT 43.2 % (35.4-49); HEMOGLOBIN 14.2 GM/dL (11.7-16.9); LYMPH % 13.7 % (8-40); MCH 27.7 pg (25.7-33.7); MCHC 32.8 g/dl (32.0-35.9); MEAN CELL VOLUME 84.3 fl (80-96); PLATELET COUNT 219 10^3/uL (134-434); RBC 5.12 M/mm3 (4.00-5.60); RDW 14.9 % (11.9-15.9); WHITE BLOOD COUNT 5.9 K/mm3 (4.0-10.0)
[2021-11-16] MEDS ORDERED: MULTIVITAMINS (DAILY MVI) TABLET (FP) ONE ×2 (16:03→16:05)
[2021-11-16] MEDS ORDERED: ZINC SULFATE 220 MG CAPSULE (FP) ONE ×2 (16:03→16:05)
[2021-11-16] MEDS: MULTIVITAMINS (DAILY MVI) TABLET (FP) PO SCH (16:07)
[2021-11-16] MEDS: ZINC SULFATE 220 MG CAPSULE (FP) PO SCH (16:07)
[2021-11-16] MEDS: HYDROCHLOROTHIAZIDE 12.5 MG CAPSULE (FP) PO SCH (17:52)
[2021-11-16] MEDS ORDERED: ATORVASTATIN CA 20 MG TABLET (FP) ONE (21:30)
[2021-11-16] MEDS: ATORVASTATIN CA 20 MG TABLET (FP) PO SCH (22:25)
[2021-11-16] MEDS: LACTATED RINGERS SOLUTION 1,000 ML/1,000 ML INFUS.BAG IV SCH (22:25)
[2021-11-17 00:36] VITALS: BMI 26.9
[2021-11-17] MEDS: LACTATED RINGERS SOLUTION 1,000 ML/1,000 ML INFUS.BAG IV SCH (05:53)
[2021-11-17] MEDS: HEPARIN NA (PORCINE) 5,000 UNITS/ML 1ML VIAL SQ SCH ×2 (05:54→15:08)
[2021-11-17] MEDS: GABAPENTIN 300 MG CAPSULE PO SCH ×2 (05:54→15:07)
[2021-11-17] MEDS: INSULIN SLIDING SCALE (NOVOLOG) 1 VIAL SQ SCH ×2 (06:22→12:35)
[2021-11-17] MEDS ORDERED: INSULIN (NOVOLOG) ASPART 100 UNITS/ML 10ML VIAL ONE ×2 (06:37→12:43)
[2021-11-17 08:43] LABS: BASO % 0.4 % (0-2.0); HEMATOCRIT 43.1 % (35.4-49); HEMOGLOBIN 14.3 GM/dL (11.7-16.9); LYMPH % 25.3 % (8-40); MCHC 33.2 g/dl (32.0-35.9); MEAN CELL VOLUME 84.2 fl (80-96); MEAN PLT VOLUME 9.9 fl (7.5-11.1); NEUT % 63.3 % (42.8-82.8); PLATELET COUNT 183 10^3/uL (134-434); RBC 5.12 M/mm3 (4.00-5.60); RDW 15.1 % (11.9-15.9); WHITE BLOOD COUNT 7.1 K/mm3 (4.0-10.0)
[2021-11-17 09:13] LABS: CALCIUM 8.9 mg/dL (8.5-10.1)
[2021-11-17 09:14] LABS: ALBUMIN 3.3 g/dl (3.4-5.0); BLOOD UREA NITROGEN 23.9 mg/dL (7-18); MAGNESIUM 2.3 mg/dL (1.8-2.4)
[2021-11-17 09:16] LABS: PHOSPHOROUS 3.5 mg/dL (2.5-4.9)
[2021-11-17 09:17] LABS: CREATININE 1.2 mg/dL (0.55-1.3)
[2021-11-17 09:18] LABS: BILIRUBIN,TOTAL 0.5 mg/dL (0.2-1); TOT PROT 6.7 g/dl (6.4-8.2)
[2021-11-17] MEDS: MEMANTINE HCL 10 MG TABLET (FP) PO SCH (10:38)
[2021-11-17] MEDS: MULTIVITAMINS (DAILY MVI) TABLET (FP) PO SCH (10:38)
[2021-11-17] MEDS: HYDROCHLOROTHIAZIDE 12.5 MG CAPSULE (FP) PO SCH (10:38)
[2021-11-17] MEDS: EZETIMIBE 10 MG TABLET (FP) PO SCH (10:38)
[2021-11-17] MEDS: ZINC SULFATE 220 MG CAPSULE (FP) PO SCH (10:38)
[2021-11-17] MEDS: TIOTROPIUM/OLODATEROL HCL (STIOLTO) 4 GM INHALER IH SCH (10:42)
[2021-11-17] MEDS: REMDESIVIR 100 MG in SODIUM CHLORIDE 250 ML IVPB SCH (10:42)
[2021-11-17 14:57] VITALS: BP 143/72; PULSE 71; TEMP 99
== END 2021-11-17 16:44 | disposition home or self-care (01) | DRG 178 ==
LOC: JER 14:31 → JERBED 17:13 → OBSVTOIN 20:06 → J8W 11-16 23:43
PROVIDERS: ADMIT Internal Medicine; ATTEND Internal Medicine
PROC: XW033E5 Introduction of Remdesivir Anti-infective into Peripheral Vein, Percutaneous Approach, New Technology Group 5 (ICD-10-PCS; principal; 2021-11-15)
DX: U07.1 COVID-19 (principal); N17.9 Acute kidney failure, unspecified; G30.9 Alzheimer's disease, unspecified; F02.80 Dementia in other diseases classified elsewhere, unspecified severity, without behavioral disturbance, psychotic disturbance, mood disturbance, and anxiety; I10 Essential (primary) hypertension; E78.5 Hyperlipidemia, unspecified; R74.01 Elevation of levels of liver transaminase levels; E11.65 Type 2 diabetes mellitus with hyperglycemia; Z79.4 Long term (current) use of insulin; K21.9 Gastro-esophageal reflux disease without esophagitis
CPT/HCPCS: 0241U-QW; 36415; 71045-TC-FY; 76775-TC; 80053; 82550; 82962; 83036; 83735; 84100; 84484; 85025; 85379; 85651; 86140; 87040; 93005; 93010; 97116-GP; 97161-GP; 99285-25; C9399; G0378; J1644; J3535

== ENCOUNTER 2021-12-15 12:22 | Emergency (ER) | payer OTHER ==
[2021-12-15 13:07] VITALS: BP 127/70; PULSE 48; RESP 20; TEMP 97.7; BMI 19.1
[2021-12-15 14:42] LABS: BASO % 1.2 % (0-2.0); HEMATOCRIT 42.2 % (35.4-49); HEMOGLOBIN 14.1 GM/dL (11.7-16.9); LYMPH % 29.4 % (8-40); MCH 28.4 pg (25.7-33.7); MCHC 33.5 g/dl (32.0-35.9); MEAN CELL VOLUME 84.7 fl (80-96); MEAN PLT VOLUME 10.2 fl (7.5-11.1); MONO % 7.3 % (3.8-10.2); NEUT % 59.1 % (42.8-82.8); PLATELET COUNT 237 10^3/uL (134-434); RBC 4.98 M/mm3 (4.00-5.60); RDW 15.5 % (11.9-15.9); WHITE BLOOD COUNT 5.9 K/mm3 (4.0-10.0)
[2021-12-15 14:43] LABS: ARTERIAL BLD GAS O2 SATURATION 94.5 % (95-98); ARTERIAL BLOOD GAS BASE EXCESS 2.9 mmol/L (-2-2); ARTERIAL BLOOD GAS PO2 72.3 mmHg (80-100)
[2021-12-15 14:59] LABS: CALCIUM 8.8 mg/dL (8.5-10.1)
[2021-12-15 15:00] LABS: ALBUMIN 3.6 g/dl (3.4-5.0); BLOOD UREA NITROGEN 19.9 mg/dL (7-18); MAGNESIUM 2.6 mg/dL (1.8-2.4)
[2021-12-15 15:03] LABS: CREATININE 1.4 mg/dL (0.55-1.3)
[2021-12-15 15:05] LABS: BILIRUBIN,TOTAL 0.6 mg/dL (0.2-1); TOT PROT 7.4 g/dl (6.4-8.2)
== END 2021-12-15 17:47 | disposition home or self-care (01) ==
LOC: JER 12:22
DX: R00.1 Bradycardia, unspecified (principal)
CPT/HCPCS: 36415; 36600; 71045-TC-FY; 80053; 82375; 82803; 83735; 84484; 85025; 93005; 93010; 99284-25

== ENCOUNTER 2022-09-14 14:42 | Emergency (ER) | payer OTHER ==
[2022-09-14 15:06] VITALS: RESP 18; TEMP 98; BMI 25.8
[2022-09-14 17:29] VITALS: BP 138/86; PULSE 73
== END 2022-09-14 19:02 | disposition home or self-care (01) ==
LOC: JER 14:42
DX: E16.2 Hypoglycemia, unspecified (principal)
CPT/HCPCS: 82962; 99283-25